=== PATIENT | female | born 1975 | race Caucasian/White ===

== ENCOUNTER 2020-05-08 09:49 | Outpatient (CLI) | payer OTHER, SELFPAY ==
[2020-05-08 10:07] LABS: Basophils Absolute Auto 0.1 K/mm3 (0.0-0.1); Basophils Percent Auto 0.6 % (0.2-1.2); Eosinophils Absolute Auto 0.2 K/mm3 (0-0.3); Eosinophils Percent Auto 2.5 % (0-4.4); Hematocrit 40.6 % (37.0-47.0); Hemoglobin 13.4 g/dL (12.0-15.0); Immature Granulocyte Absolute 0.04 K/mm3 (0.00-0.031); Immature Granulocyte Percent A 0.4 % (0-0.5); Lymphocytes Absolute Auto 2.13 K/mm3 (0.9-3.2); Lymphocytes Percent Auto 21.9 % (18.3-44.2); Mean Corpuscular Hemoglobin 29.6 pg (26-34); Mean Corpuscular Volume 89.6 fl (80-100); Mean Platelet Volume 10.3 fl (7.4-10.4); Monocytes Absolute Auto 0.9 K/mm3 (0.1-0.6); Neutrophils Absolute Auto 6.4 K/mm3 (1.3-6.7); Neutrophils Percent Auto 65.6 % (45.5-73.1); Platelet Count Result 304 k/mm3 (150-375); Red Blood Count 4.53 M/mm3 (4.2-5.4); Red Cell Distribution Width 13.9 % (11.5-14.5); White Blood Count 9.7 K/mm3 (4.5-10.0)
[2020-05-08 10:22] LABS: Alanine Aminotransferase 15 U/L (4-35); Albumin Level 4.3 g/dL (3.5-5.1); Alkaline Phosphatase 68 U/L (38-126); Anion Gap 9 mmol/L (8-16); Aspartate Amino Transferase 22 U/L (14-36); Bilirubin,Total 0.5 mg/dL (0.2-1.3); Blood Urea Nitrogen 10 mg/dL (7-17); Calcium 9.6 mg/dL (8.4-10.2); Carbon Dioxide 24 mmol/L (22-30); Chloride 105 mmol/L (98-107); Cholesterol 195 mg/dL (0-200); Estimated Glomerular Filt Rate > 60; Glucose 117 mg/dL (65-105); HDL Direct 45 mg/dL; Potassium 4.1 mmol/L (3.4-5.0); Sodium 138 mmol/L (137-145); Triglycerides 145 mg/dL (<150)
[2020-05-08 10:33] LABS: LDL Cholesterol Direct 112 mg/dL
[2020-05-08 10:53] LABS: Total Triiodothyronine (T3) 1.39 NG/ML (0.97-1.69)
[2020-05-08 12:53] LABS: Vitamin D 25 Hydroxy 28.5 ng/mL
== END 2020-05-08 09:50 | disposition home or self-care (01) ==
PROVIDERS: PCP Family Medicine; Visit Provider Nurse Practitioner
DX: R03.0 Elevated blood-pressure reading, without diagnosis of hypertension (principal); E55.9 Vitamin D deficiency, unspecified
CPT/HCPCS: 36415; 80053; 80061; 82306; 84439; 84443; 84480; 85025

== ENCOUNTER 2020-12-30 23:19 | Emergency (ER) | payer OTHER, SELFPAY ==
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
[2020-12-30 23:12] VITALS: BP 142/106; PULSE 110; RESP 18; TEMP 36.6; O2SAT 99
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
[2020-12-30] MEDS: IBUPROFEN 600 MG TABLET PO (23:41)
[2020-12-31 00:26] VITALS: BP 119/92; RESP 16; O2SAT 99
[2020-12-31] MEDS: METOCLOPRAMIDE HCL INJ 10 MG/2 ML VIAL IV PUSH (00:46)
[2020-12-31] MEDS: diazePAM INJ (*CRX) 10 MG/2 ML SYRINGE 5 MG IV PUSH (00:46)
[2020-12-31 02:22] VITALS: BP 128/94; PULSE 89; RESP 16; O2SAT 99
== END 2020-12-31 02:18 | disposition home or self-care (01) ==
PROVIDERS: Emergency Provider Emergency Medicine; PCP Family Medicine
DX: S06.9X9A Unspecified intracranial injury with loss of consciousness of unspecified duration, initial encounter (principal); S80.02XA Contusion of left knee, initial encounter; I10 Essential (primary) hypertension; G93.0 Cerebral cysts; V47.5XXA Car driver injured in collision with fixed or stationary object in traffic accident, initial encounter
CPT/HCPCS: 70450; 71046; 73564; 96365; 96375; 99284; A9270; J0131; J2765; J3360

== ENCOUNTER 2021-04-09 19:31 | Emergency (ER) | payer OTHER, SELFPAY ==
--- NOTE | ~2021-04-09 | XR_ITS ---
XR elbow LT min 3V 04/09/2021 20:23 INDICATION: Left elbow pain PROCEDURE: 4 views left elbow COMPARISON: No prior studies for comparison. FINDINGS: Fracture, dislocation or subluxation is not identified. The soft tissues appear within norm al limits. No foreign bodies are identified. IMPRESSION: 1: NO ACUTE BONE OR JOINT ABNORMALITY IDENTIFIED. Reviewed, dictated and finalized at location A.
[2021-04-09 19:32] VITALS: BP 146/96; PULSE 86; RESP 18; TEMP 36.6; O2SAT 100
--- NOTE | 2021-04-09 19:59 | ED.GENADULT ---
HPI - General Adult General Chief complaint: Extremity Injury, Upper Stated complaint: left elbow pain Time Seen by Provider: 04/09/21 19:35 Source: patient Mode of arrival: ambulatory Limitations: no limitations History of Present Illness HPI narrative: Patient presents for evaluation of left elbow pain for the last 2 weeks. 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 She was working 2 weeks ago when she felt a pop in her left elbow. She states she has experienced pain in the affected joint since that time. Pain is constant, worse with movement. She does perform repetitive movements while working. She states that pain is 8 out of 10 in severity, sharp, shooting, radiating to the left shoulder and left wrist. She does get some tingling in all digits of left hand but denies any numbness. No loss of range of motion. Movement makes her symptoms worse. She has tried ibuprofen and tramadol, neither of which has been particularly helpful. She does have a history of arthroscopic surgery in the left shoulder in the past. She is right-hand dominant. No additional complaints or concerns. Related Data Home Medications Medication Instructions Recorded Confirmed amlodipine 10 mg PO DAILY 04/09/21 propranolol 40 mg PO DAILY 04/09/21 Allergies Allergy/AdvReac Type Severity Reaction Status Date / Time promethazine Allergy Unknown UNKNOWN Verified 07/08/19 02:43 zolpidem Allergy Unknown Hallucinati Verified 04/09/21 19:37 ng prochlorperazine AdvReac Severe Unknown Verified 04/09/21 19:37 Review of Systems Review of Systems: Narrative: CONSTITUTIONAL: Denies fever, chills, or sweats. EYES: Denies visual changes, redness, or discharge. ENT: Denies rhinorrhea, congestion, sore throat, or otalgia. CARDIOVASCULAR: Denies chest pain, palpitations, or edema. RESPIRATORY: Denies cough or dyspnea. GASTROINTESTINAL: Denies abdominal pain, nausea, vomiting, or diarrhea. GENITOURINARY: Denies dysuria or hematuria. SKIN: Denies rash or itching. MUSCULOSKELETAL:Reports left elbow pain. Denies back pain or myalgia. NEUROLOGIC: Reports tingling in all digits of the left hand. Denies headache, numbness, dizziness, or weakness. PSYCHIATRIC: Denies anxiety or depression. [facility] Past Medical History Medical History (Updated 04/09/21 @ 20:39 by Mark Alanis, [facility], ) HTN (hypertension) Exam Narrative: Exam Narrative: GENERAL: Well-appearing, well-nourished, and in no acute distress. HEAD: Normocephalic, atraumatic. EYES: PERRLA and EOMI. ENT: Nares clear, no rhinorrhea or epistaxis. Mucous membranes moist. Oropharynx without tonsillar hypertrophy exudate or other lesions. Bilateral TMs pearly [place] nonbulging NECK: Supple. No adenopathy or masses. No carotid bruits or JVD CHEST: Clear to auscultation. No respiratory distress. No wheezes rales or rhonchi HEART: Regular rate and rhythm. No murmur heard. Normal peripheral pulses. ABDOMEN: Soft, nontender, nondistended, normal active bowel sounds. EXTREMITIES: Tenderness over lateral epicondyle of left elbow. There is no crepitus, deformity, swelling. 5 out of 5 gross strength against resistance with flexion of the left elbow. 5 out of 5 hand respiratory therapist strength bilaterally. Decreased active ROM of left shoulder. She is able to tolerate full passive ROM of left shoulder SKIN: Warm, dry, no rash. NEURO: No focal deficits. Alert and oriented x3. PSYCH: Normal mood and affect. Course Course Emergency Course: This is a 46-year-old female who presented with complaints of left elbow pain. Physical exam was consistent with lateral epicondylitis. I offered patient imaging and she elected to have x-ray performed. There is no acute bony abnormality identified on imaging. She was provided with a sling. Unfortunately, her pain has been refractory to ibuprofen and tramadol. We will give small quantity of norco per script. She should follow-up outpatient for further vision treatment and ret
[2021-04-09] MEDS: HYDROcodone/acetaminophen (*CRX) 5-325 MG TABLET 2 TAB PO (20:11)
== END 2021-04-09 20:54 | disposition home or self-care (01) ==
PROVIDERS: Emergency Provider Nurse Practitioner; PCP Family Medicine
DX: M77.12 Lateral epicondylitis, left elbow (principal); I10 Essential (primary) hypertension
CPT/HCPCS: 73080; 99283; A4565; A9270

== ENCOUNTER 2021-12-03 21:48 | Emergency (ER) | payer OTHER, SELFPAY ==
[2021-12-03] VITALS (12 sets, daily range): BP systolic 106–149; BP diastolic 72–106; PULSE 63–79; RESP 14–26; TEMP 36.8; O2SAT 93–100
--- NOTE | ~2021-12-03 | CT_ITS ---
EXAMINATION: CTA brain carotid DATE: 12/03/2021 23:47 INDICATION: Headache. Loss of vision. TECHNIQUE: Computed tomographic angiography (CTA) of the head was performed without and with 100 mL O mnipaque-350 intravenous contrast. CTA of the neck was performed with intravenous contrast. Automated exposure control and iterative reconstruction technique were employed. The dose-length product was 1 655.64 mGy-cm. Maximum intensity projection and volume rendered 3D-reconstructions were created by kim wilcox technologist on a separate workstation. COMPARISON: Head CT 12/31/2020 FINDINGS: HEAD CTA: There is no intracranial hemorrhage, acute infarction, or abnormal intracranial mass lesion . There is a 1.7 x 1.2 cm cyst at the body of right lateral ventricle. The ventricles are otherwise n ormal in size. The paranasal sinuses are clear. The mastoid air cells are normal. The vertebral arter ies are codominant. There is no significant stenosis of basilar artery or the posterior cerebral darleen edson. There is no significant stenosis of the anterior or middle cerebral arteries. Anterior communic ating artery is normal. The posterior communicating arteries are normal. There is no aneurysm. NECK CTA: There are no pathologically enlarged lymph nodes. There is no significant plaque in the pro ximal internal carotid arteries. There is 0% stenosis of the proximal right internal carotid artery r elative to normal distal artery lumen diameter (NASCET criteria). There is 0% stenosis of the proxima l left internal carotid artery relative to normal distal artery lumen diameter. There is moderate cer vical spondylosis. There is extensive dental disease. IMPRESSION: 1. 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 2. No aneurysm or significant intracranial arterial stenosis. 3. 0% stenosis of the proximal internal carotid arteries relative to normal distal artery lumen diame ters (NASCET criteria). 4. Extensive dental disease. Reviewed, dictated and finalized at location A. GER ROUTE IMPRESSION: 1. 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 2. No aneurysm or significant intracranial arterial stenosis. 3. 0% stenosis of the proximal internal carotid arteries relative to normal dis barbara artery lumen diameters (NASCET criteria). 4. Extensive dental disease.
[2021-12-03 22:13] LABS: Basophils Absolute Auto 0.1 K/mm3 (0.0-0.1); Basophils Percent Auto 0.5 % (0.2-1.2); Eosinophils Absolute Auto 0.3 K/mm3 (0-0.3); Eosinophils Percent Auto 3.3 % (0-4.4); Hematocrit 43.5 % (37.0-47.0); Immature Granulocyte Absolute 0.06 K/mm3 (0.00-0.031); Immature Granulocyte Percent A 0.6 % (0-0.5); Lymphocytes Absolute Auto 2.79 K/mm3 (0.9-3.2); Lymphocytes Percent Auto 28.9 % (18.3-44.2); Mean Corpuscular HGB Conc 32.2 g/dl (32-36); Mean Corpuscular Hemoglobin 29.5 pg (26-34); Mean Corpuscular Volume 91.6 fl (80-100); Mean Platelet Volume 10.1 fl (7.4-10.4); Monocytes Absolute Auto 0.9 K/mm3 (0.1-0.6); Monocytes Percent Auto 9.2 % (2.6-8.5); Neutrophils Absolute Auto 5.6 K/mm3 (1.3-6.7); Neutrophils Percent Auto 57.5 % (45.5-73.1); Platelet Count Result 386 k/mm3 (150-375); Red Blood Count 4.75 M/mm3 (4.2-5.4); Red Cell Distribution Width 13.5 % (11.5-14.5); White Blood Count 9.7 K/mm3 (4.5-10.0)
[2021-12-03] MEDS: diphenhydrAMINE HCl INJ 50 MG/ML VIAL 25 MG IV PUSH (22:15)
[2021-12-03] MEDS: KETOROLAC 30 MG/ML VIAL (*BKC) IV PUSH (22:17)
[2021-12-03] MEDS: METOCLOPRAMIDE HCL INJ 10 MG/2 ML VIAL IV PUSH (22:20)
[2021-12-03 22:27] LABS: Anion Gap 8 mmol/L (8-16); Blood Urea Nitrogen 9 mg/dL (7-17); Calcium 9.3 mg/dL (8.4-10.2); Carbon Dioxide 28 mmol/L (22-30); Chloride 103 mmol/L (98-107); Estimated CRCL calculation 96 ml/min; Estimated Glomerular Filt Rate > 60; Glucose 122 mg/dL (65-110); Potassium 4.1 mmol/L (3.4-5.0); Sodium 139 mmol/L (137-145)
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
[2021-12-04] VITALS (17 sets, daily range): BP systolic 110–127; BP diastolic 74–96; PULSE 62–77; RESP 15–24; TEMP 36.2; O2SAT 97–100
--- NOTE | 2021-12-04 00:28 | PC.NURSE ---
Pt C/O irritation to left eye. Pt reports problable eyelash in eye. Eye irrigated with clean water.
--- NOTE | 2021-12-04 02:29 | PC.NURSE ---
Report called to Laura at [facility]
--- NOTE | 2021-12-04 02:45 | PC.NURSE ---
Report by ED CLAIRE Frederick to [facility]. Awaiting EMS arrival for transport: ETA [id number]. Per ED MD Fitch and [facility], transfer is time-sensitive .
--- NOTE | 2021-12-04 03:00 | PC.NURSE ---
Report given to [facility].
== END 2021-12-04 03:00 | disposition short-term general hospital (02) ==
PROVIDERS: Emergency Provider Emergency Medicine; PCP Family Medicine
DX: R51.9 Headache, unspecified (principal); H54.7 Unspecified visual loss; I10 Essential (primary) hypertension
CPT/HCPCS: 36415; 70496; 70498; 80048; 81025; 85025; 96374; 96375; 99285; J1200; J1885; J2765; Q9967

== ENCOUNTER 2022-08-27 11:35 | Emergency (ER) | payer OTHER, SELFPAY ==
--- NOTE | ~2022-08-27 | XR_ITS ---
XR foot LT min 3V DATE: 08/27/2022 12:27 INDICATION: Fall 2 days ago. Patient felt her foot pop. Pain. TECHNIQUE: 4 views COMPARISON: None FINDINGS: Slight plantar calcaneal enthesopathy. Probable os tibiale externum accessory ossicles, normal variant, the proximal medial aspect of the ta rsal navicular bone. No fracture or dislocation, periosteal reaction or bone destruction is evident. IMPRESSION: No apparent fracture or dislocation Slight plantar calcaneal enthesopathy Os tibiale externum, normal variant Reviewed, dictated and finalized at location A. [place] [employer]
[2022-08-27 11:45] VITALS: BP 145/96; PULSE 82; RESP 18; TEMP 37; O2SAT 100
--- NOTE | 2022-08-27 12:37 | ED.LOWEXIN ---
HPI - Extremity Injury (Lower) General Chief Complaint: Extremity Injury, Lower Stated Complaint: L LEG PAIN S/P FALL AFTER PT Time Seen by Provider: 08/27/22 12:21 History of Present Illness HPI Narrative: Patient is a 47-year-old female here for evaluation of left foot pain for the past 4 days. Patient states that she fell 4 days ago while at physical therapy and landed on the foot in inversion, has had mild pain since then, but yesterday when she was ambulating she felt a pop in the dorsum of her foot in the pain has been severe since. Patient has been able to bear weight but is states it is painful. She took a tramadol yesterday with mild relief of her pain. No numbness or tingling in the foot, difficulty moving the foot, knee pain, head injury or further injury sustained in the fall. Related Data Home Medications Medication Instructions Recorded Confirmed amlodipine 10 mg tablet 10 mg PO DAILY 04/09/21 propranolol 40 mg tablet 40 mg PO DAILY 04/09/21 Allergies Allergy/AdvReac Type Severity Reaction Status Date / Time promethazine Allergy Unknown UNKNOWN Verified 08/27/22 12:00 zolpidem Allergy Unknown Hallucinati Verified 08/27/22 12:00 ng prochlorperazine AdvReac Severe Unknown Verified 08/27/22 12:00 [facility] Past Medical History Medical History (Updated 08/27/22 @ 13:28 by Sherin Pepper PA-C) HTN (hypertension) Migraine headache Surgical History Surgical History (Updated 12/03/21 @ 23:04 by Tom Fitch MD) History of appendectomy History of cholecystectomy Social History Social History (Updated 12/03/21 @ 23:05 by Tom Fitch MD) Smoking status: Never smoker Course Vital Signs Vital signs: Vital Signs Temperature 98.6 F 08/27/22 11:45 Pulse Rate 82 08/27/22 11:45 Respiratory Rate 18 08/27/22 11:45 Blood Pressure 145/96 H 08/27/22 11:45 Pulse Oximetry 100 08/27/22 11:45 Oxygen Delivery Room Air 08/27/22 11:45 Temperature 98.6 F 08/27/22 11:45 Pulse Rate 82 08/27/22 11:45 Respiratory Rate 18 08/27/22 11:45 Blood Pressure 145/96 H 08/27/22 11:45 Pulse Oximetry 100 08/27/22 11:45 Oxygen Delivery Room Air 08/27/22 11:45 MDM - Extremity Injury (Lower) MDM Narrative Medical decision making narrative: 47 year old female here for evaluation of foot pain over the past several days. She is tender to palpation on the dorsum of her foot but has no obvious deformity, her compartments are soft and she has strong distal pulses. Foot x-ray shows no acute abnormality. For patient's comfort she was placed in a postop shoe and encouraged to follow-up with her primary care doctor. She is able to bear weight. Return precautions were discussed and she was discharged home. Discharge Plan Discharge Clinical Impression: Ankle sprain and strain Patient Disposition: Home, Self-Care Condition: Stable Instructions: Antibiotic Form, Arthralgia (ED) Additional Instructions: Your x-ray did not reveal any fracture of your foot. It is likely you have a sprain. Please wear the postop shoe for your comfort. For pain, alternate between Tylenol and ibuprofen. You can take 1000mg of Tylenol every 6 hours and 800 mg Motrin/ibuprofen every 8 hours. Return if your pain acutely worsens, you develop fevers or chills, you lose consciousness. Prescriptions: No Action propranolol 40 mg tablet 40 mg PO DAILY amlodipine 10 mg tablet 10 mg PO DAILY hydrocodone-acetaminophen 5-325 mg tablet 1 - 2 tablet PO Q8H PRN (Reason: pain) Qty: 12 0RF Follow-up/Referrals: Alexis,AMBER Rendon [Primary Care Provider] -
[2022-08-27] MEDS: IBUPROFEN 600 MG TABLET PO (13:13)
== END 2022-08-27 13:35 | disposition home or self-care (01) ==
PROVIDERS: Emergency Provider Physician Assistant; PCP Physician Assistant
DX: S93.402A Sprain of unspecified ligament of left ankle, initial encounter (principal); S96.912A Strain of unspecified muscle and tendon at ankle and foot level, left foot, initial encounter; I10 Essential (primary) hypertension; W19.XXXA Unspecified fall, initial encounter; X50.9XXA Other and unspecified overexertion or strenuous movements or postures, initial encounter
CPT/HCPCS: 73630; 99283; A9270

== ENCOUNTER 2024-07-01 09:07 | Emergency (ER) | payer OTHER, SELFPAY ==
[2024-07-01 09:22] VITALS: BP 132/89; PULSE 97; RESP 14; TEMP 36.6; O2SAT 100
--- NOTE | 2024-07-01 09:59 | ED.ALLEREA ---
HPI - Allergic Reaction General Chief complaint: Allergic Reaction Stated complaint: allergic reaction to antibx Time Seen by Provider: 07/01/24 09:51 Source: patient Mode of arrival: ambulatory Limitations: no limitations History of Present Illness HPI narrative: This is a 49-year-old female that presents to the emergency department for a possible allergic reaction. Reports she is currently on Augmentin for strep throat. She started this medication on Sunday. on Sunday she started to develop itching and hives. She took Benadryl with relief. She continued to take the Augmentin as her doctor had not called in a different prescription yet. Once again she started to develop itching and rash. She has been having sore throat, cough, nausea and vomiting. Also reports she has had itching and discharge of her vulva. Deneis fevers. Related Data Home Medications Medication Instructions Recorded Confirmed amlodipine 10 mg tablet 10 mg PO DAILY 04/09/21 propranolol 40 mg tablet 40 mg PO DAILY 04/09/21 Allergies Allergy/AdvReac Type Severity Reaction Status Date / Time promethazine Allergy Unknown UNKNOWN Verified 07/01/24 11:08 zolpidem Allergy Unknown Hallucinati Verified 07/01/24 11:08 ng prochlorperazine AdvReac Severe Unknown Verified 07/01/24 11:08 Review of Systems Review of Systems: CONSTITUTIONAL: Denies fever ENT: Reports congestion, sore throat, and otalgia. RESPIRATORY: Reports cough and dyspnea. GASTROINTESTINAL: Reports nausea, vomiting SKIN: Reports rash and itching. All systems reviewed & are unremarkable except as noted in HPI and below PMFSH Past Medical History Medical History (Updated 07/01/24 @ 10:00 by Sherin Douglas PA-C) HTN (hypertension) Migraine headache Surgical History Surgical History (Updated 12/03/21 @ 23:04 by Tom Fitch MD) History of appendectomy History of cholecystectomy Social History Social History (Updated 12/03/21 @ 23:05 by Tom Fitch MD) Smoking status: Never smoker Living arrangements: with family Exam Narrative: GENERAL: Well-appearing, well-nourished, and in no acute distress. HEAD: Normocephalic, atraumatic. EYES: EOMI. ENT: Nares clear, no rhinorrhea or epistaxis. Mucous membranes moist. Oropharynx without tonsillar hypertrophy exudate or other lesions. Bilateral TMs pearly [place] non-bulging NECK: Supple. No adenopathy or masses. CHEST: Clear to auscultation. No respiratory distress. No wheezes rales or rhonchi HEART: Regular rate and rhythm. No murmur heard. Normal peripheral pulses. EXTREMITIES: Normal range of motion. No edema. SKIN: Warm, dry, no rash. NEURO: No focal deficits. Alert and oriented x3. PSYCH: Normal mood and affect FEMALE GENITAL: Redness and white discharge noted on the vulva Course Course Emergency Course: Patient updated on her workup and agrees with plan of care Vital Signs Vital signs: Vital Signs Temperature 97.9 F 07/01/24 09:22 Pulse Rate 97 07/01/24 09:22 Respiratory Rate 14 07/01/24 09:22 Blood Pressure 132/89 07/01/24 09:22 Pulse Oximetry 100 07/01/24 09:22 Oxygen Delivery Room Air 07/01/24 09:22 Temperature 97.9 F 07/01/24 09:22 Pulse Rate 83 07/01/24 12:21 Respiratory Rate 25 H 07/01/24 12:21 Blood Pressure 128/100 H 07/01/24 12:21 Pulse Oximetry 100 07/01/24 12:21 Oxygen Delivery Room Air 07/01/24 09:22 MDM - Allergic Reaction MDM Narrative Medical decision making narrative: Patient presents the emergency department for possible allergic reaction to Augmentin. Had been on it for 3 days. Started developed hives. Take Benadryl with relief, but then took another dose. Has had continued itching since. Patient's airway is patent. Lungs are clear on exam. No swelling of the mouth or throat. Given dose of Solu-Medrol and antihistamines with improvement. Also endorsing vulvar irritation. Exam is consistent with vulvovaginal quinn
[2024-07-01] MEDS: SODIUM CHLORIDE 0.9% IV 1,000 ML 999 ML IV CONT (10:58)
[2024-07-01] MEDS: FLUCONAZOLE 150 MG TABLET PO (10:59)
[2024-07-01] MEDS: ONDANSETRON INJ 4 MG/2 ML VIAL IV PUSH (10:59)
[2024-07-01] MEDS: diphenhydrAMINE HCl INJ 50 MG/ML VIAL 25 MG IV PUSH ×2 (11:03→14:00)
[2024-07-01] MEDS: methylPREDNISolone SOD SUCC 125 MG VIAL IV PUSH (11:06)
[2024-07-01] MEDS: FAMOTIDINE 20 MG/2 ML VIAL IV PUSH (11:06)
[2024-07-01 11:08] VITALS: BP 146/95; PULSE 77; RESP 18; O2SAT 99
--- NOTE | 2024-07-01 11:08 | PC.NURSE ---
Charting done by Mahnaz Terrazas student counsellor reviewed and RN agrees
[2024-07-01 11:55] LABS: Influenza A QL RT-PCR Negative (Negative); Influenza B QL RT-PCR Negative (Negative); RSV RNA, RT-PCR Negative (Negative); SARS-CoV-2 RNA PCR Negative (Negative)
[2024-07-01 12:21] VITALS: BP 128/100; PULSE 83; RESP 25; O2SAT 100
[2024-07-01 13:55] VITALS: BP 126/76; PULSE 89; RESP 22; O2SAT 97
== END 2024-07-01 14:11 | disposition home or self-care (01) ==
PROVIDERS: Emergency Provider Physician Assistant; PCP Nurse Practitioner Family
DX: B37.31 Acute candidiasis of vulva and vagina (principal); T78.40XA Allergy, unspecified, initial encounter; X58.XXXA Exposure to other specified factors, initial encounter; I10 Essential (primary) hypertension; Z20.822 Contact with and (suspected) exposure to COVID-19
CPT/HCPCS: 87637; 96361; 96374; 96375; 96376; 99284; A9270; J1200; J2405; J2919; J7030

== ENCOUNTER 2025-03-30 19:40 | Emergency (ER) | payer OTHER, SELFPAY ==
--- NOTE | ~2025-03-30 | CT_ITS ---
Noncontrast CT scan of the cervical spine Technique: Multiple contiguous axial [address] images of the cervical spine were obtained and rec onstructed in 2D sagittal and coronal planes on the acquisition scanner. Dose reduction technique was used on this scan by utilizing automated exposure control, adjustment of the mA and/or kV according to patient size. The dose-length product (DLP) was 447.77 mGy-cm. Clinical History: Pain Findings: No fractures or dislocations. There is moderate degenerative disc narrowing at C5-C6. Ther e is mild degenerative change in the remainder of the cervical spine. There is mild bilateral neural foraminal narrowing at C5-C6. No prevertebral soft tissue swelling. Impression: No fracture or subluxation of the cervical spine. Degenerative changes, as above, worst at C5-C6. Reviewed, dictated and finalized at [facility]. Impression: No fracture or subluxation of the cervical spine. Degenerative changes, as above, worst at C5-C6.
--- NOTE | ~2025-03-30 | CT_ITS ---
Non-contrast Head CT History: Headache COMPARISON: 12/03/2021 Technique: Axial non-contrast imaging of the brain was performed. Dose reduction technique was used on this scan by utilizing automated exposure control and iterative reconstruction technique. The dose -length product (DLP) was 605.33 mGy-cm. Findings: There is no evidence of intracranial hemorrhage, mass lesion, or acute infarct. Brain par enchyma appears normal. The ventricles and subarachnoid spaces are normal in size. The calvarium ap pears normal. The visualized paranasal sinuses and mastoid air cells are clear. Impression: No significant abnormality seen. Reviewed, dictated and finalized at location . Impression: No significant abnormality seen.
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
--- OUTSIDE RECORDS SUMMARY | 2025-03-30 19:42 | XMS_ITS | Encounter Summary ---
Author Organization [facility] Address 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
--- OUTSIDE RECORDS SUMMARY | 2025-03-30 19:42 | XMS_ITS | Clinical Summary ---
Author Organization [facility] Address [address] [place] [address] [place] [place], [place] [address] Phone Care Team Providers Care Online Merchandiser Name Role Phone Unavailable Primary Care Provider Unavaildom e Allergies Active Allergy Reactions Criticality Noted Date Comments Zolpidem Anxiety Low 09/01/2010 Medications IBUPROFEN (ADVIL ORAL) Take by mouth. Ac tive azithromycin (ZITHROMAX Z-BHARATHI) 250 mg Oral tabletIndicatio ns:Acute bronchitis Take 2 tabs the first day and 1 tab days 2-5 1 Package 0 2 Active benzonatate (TESSALON) 200 mg Oral capsuleIndicati ons:Acute bronchitis Take 1 Cap by mouth 3 times daily. 30 Cap 0 2 Active rOPINIRole (REQUIP) 2 mg Tablet 1 TAB 1-3 HOURS BEFORE BED 2 Active erenumab-aooe (AIMOVIG) 70 mg/mL Auto-Injector Inject 70 mg by subcutaneous injection every 30 days. 3 Active Active Problems No known active problems Encounters Date Type Department Care Team Description 03/17/2025 External Device Data [facility] ABSTRACTION Provider, Abstract 03/03/2025 External Device Data [facility] ABSTRACTION Provider, Abstract 02/19/2025 External Device Data [facility] ABSTRACTION Provider, Abstract 02/18/2025 External Device Data [facility] ABSTRACTION Provider, Abstract 02/17/2025 External Device Data [facility] ABSTRACTION Provider, Abstract 01/13/2025 External Device Data [facility] ABSTRACTION Provider, Abstract from Last 3 Months Family History * Patient is adopted Medical History Relation Name Comments Colon Cancer Neg Hx Social History Tobacco Use Types Packs/Day Years Used Date Smoking Tobacco: Never Smokeless Tobacco: Never Alcohol Use Standard Drinks/Week Comments No 0 (1 standard drink = 0.6 oz pur e alcohol) Feeling Safe Answer Date Recorded Are you in a relationship wi th someone who hurts you emotionally and/or physically? 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 Gender Identity Female 07/15/2024 12:25 PM CDT Sexual Orientation Straight 07/15/2024 12 :25 PM CDT Occupation Industry Job Start Date Job End Date Not on file Not on file Not on file Not on file Last Filed Vital Signs Vital Sign Reading Time Taken Comments Blood Pressure 111/82 07/31/2024 10:24 AM CDT Pulse 73 07/31/2024 10:24 AM CDT Temperature 36.1 C (97 F) 07/31/2024 10:12 AM CDT Respiratory Rate 18 07/31/2024 10:24 AM CDT Oxygen Saturation 100% 07/31/2024 10:24 AM CDT Inhaled Oxygen Concentration - - Weight 93.1 kg (205 lb 3.2 oz) 07/31/2024 8:58 A M CDT Height 157.5 cm (5' 2) 07/15/2024 1:00 PM CDT Body Mass Index 37.53 07/15/2024 1:00 PM CDT Plan of Treatment Health Maintenance Due Date Last Done Comments Pre-Diabetes and Diabetes Screening 1975 HEPATITIS B VACCINES (1 of 3 - 19+ 3-dose series) 1996 05/26/2004 HPV/Cotest (21-29) 1998 CERVICAL CANCER SCREENING 2007 HPV/Cotest (30-65) 2007 PAP SMEAR 2007 BREAST CANCER SCREENING 2017 FIT-DNA Q 3 years 2022 FIT/FOBT Q 1 year 2022 Flex Sig/CT Colonography Q 5 years 2022 INFLUENZA VACCINE (#1) 2024 DTAP/TDAP/TD VACCINES (2 - Td or Tdap) 05/15/2034 COLORECTAL SCREENING 07/31/2034 07/31/2024, 07/31/20 24 Colorectal Cancer Screening 07/31/2034 Procedures Procedure Name Priority Date/Time Associated Diagnosis Comments COLONOSCOPY REPORT 07/31/2024 10 :12 AM CDT from Last 3 Months or Most Recently Relevant to Health Maintenance Results * COLONOSCOPY REPORT (07/31/2024 10:12 AM CDT) Narrative Procedure Note Yisel Muñoz MD - 07/31/2024 10:12 AM CDT [facility] Patient Name: Saira Arteaga Procedure Date: 07/31/2024 Date of : 1975 Age: 49 Attending MD: Yisel Muñoz MD, Procedure: Colonoscopy Indications: Screening for colorectal malignant neoplasm Providers: Yisel Muñoz MD Referring MD: Elena Rodriguez Medicines: Monitored Anesthesia Care Procedure: Informed consent was obtained for the procedure, including moderate sedation after risks were discussed. Based on the pre-procedure assessment, including review of the patient's medical history, medications, allergies, and review of systems, the patient was deemed to be an appropriate candidate for sedation. A timeout was performed. Continuous ECG monitoring, pulse oximetry, blood pressure monitoring, and direct observation were performed. The Colonoscope was introduced through the anus and advanced to the terminal ileum. The colonoscopy was performed without difficulty. The patient tolerated the procedure well. The quality of the bowel preparation was good. The terminal ileum, ileocecal valve, appendiceal orifice, and rectum were photographed. Estimated Blood Loss: Estimated blood loss was minimal. Findings: Hemorrhoids were found on perianal exam. The terminal ileum appeared normal. A 3 mm polyp was found in the ascending colon. The polyp was sessile. The polyp was removed with a jumbo cold forceps. Resection and retrieval were complete. Verification of patient identification for the specimen was done. Four sessile polyps were found in the recto-sigmoid colon. The polyps were 3 to 4 mm in size. These polyps were removed with a jumbo cold forceps. Resection and retrieval were complete. The exam was otherwise without abnormality on direct and retroflexion views. Complications: No immediate complications. Impression: - Hemorrhoids found on perianal exam. - The examined portion of the ileum was normal. - One 3 mm polyp in the ascending colon, removed with a jumbo cold forceps. Resected and retrieved. - Four 3 to 4 mm polyps at the recto-sigmoid colon, removed with a jumbo cold forceps. Resected and retrieved. - The examination was otherwise normal on direct and retroflexion views. Recommendation: - Patient has a contact number available for emergencies. The signs and symptoms of potential delayed complications were discussed with the patient. Return to normal activities tomorrow. Written discharge instructions were provided to the patient. - Resume previous diet. - Continue present medications. - Await pathology results. - Repeat colonoscopy in 3 years (if adenomatous) or 10 years (if hyperplastic) for surveillance based on pathology results. Yisel Muñoz MD 07/31/2024 10:12:33 AM This report has been signed electronically. Number of Addenda: 0 Procedure Date: 07/31/2024 9:43:[address] [place] [address] Yisel Muñoz MD GI PROCEDURE ORDERABLES F inal Result from Last 3 Months or Most Recently Relevant to Health Maintenance Insurance INDIVIDUAL EXCHANGE [id number] Advance Directives For more information, please contact: [phone] * Full Code (Latest Code Status on File) Date Activated Date Inactivated Comments 07/31/2024 9:02 AM 07/31/2024 12:43 PM
--- OUTSIDE RECORDS SUMMARY | 2025-03-30 19:42 | XMS_ITS | Encounter Summary ---
Author Organization [facility] Address 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
--- OUTSIDE RECORDS SUMMARY | 2025-03-30 19:42 | XMS_ITS | Encounter Summary ---
Author Organization [facility] Address [address] [place] [address] Care Team Providers Care Pss Delivery Professional Name Role Phone Unavailable Primary Care Provider Mckenna e Encounter Details Date Type Department Care Team (Late st Contact Info) Description 03/04/2004 Outpatient Historical [facility] [address] [place] [address] Luz Nunez MD [address] [place] [address] Social History Tobacco Use Types Packs/Day Years Used Date Smoking Tobacco: Never Assessed Comments Unknown Sex and Gender Information Value Date Recorded Sex Assigned at Female 07/15/2024 12:25 PM CDT 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
--- OUTSIDE RECORDS SUMMARY | 2025-03-30 19:42 | XMS_ITS | Data Portability ---
Author Organization [facility] [employer], Main Office Address [address] [place] [address] Assessment Encounter Date Assessment Date Assessment LastModified by Organization Details LastModified Time 07/17/2023 07/17/2023 This note is dictated and transcribed by [employer]. [employer] variances may occur. Despite proofreading, typographical errors may occur. [email or web address] Not available 07/17/2023 09:30:13 Plan of Treatment Reminders Order Date Submit Date Provider Last Modified By Organization Details Last Modified Time Details Appointments None recorded. Lab rapid strep group A, throat 2023 [facility] [address], [place], [address], 4 16:04:36 pap, IG + HR HPV 2023 024 [facility] (Lab), [address] [place], [address], 4 10:39:50 lipid panel, serum 2023 024 [facility] (Lab), [address] [place], [address], 4 14:11:46 CBC w/ auto diff 2023 024 [facility] (Lab), [address] [place], [address], 4 14:11:45 TSH, serum or plasma 2023 024 [facility] (Lab), [address] [place], [address], 4 08:52:25 vitamin D, 1,25-dihydr oxy, serum 2023 024 [facility] (Lab), [address] [place], [address], 4 08:52:26 CMP, serum or plasma 2023 024 [facility] (Lab), [address] [place], [address], 4 14:11:45 glycohemogl obin, total, blood 2023 024 [facility] (Lab), [address] [place], [address], 4 08:52:26 noninvasive colorectal cancer DNA + occult blood screening, QL, stool 2023 024 [email or web address] 477 [facility] (Cologuard Orders Only), [address], [address], [place], [address], 4 08:28:48 Referral None recorded. Procedures None recorded. Surgeries None recorded. Imaging MAMMO, screening, digital, bilateral - *Please call pt to schedule* 2023 [email or web address] [place] [address] - [facility], [address], [address], [place], [address], 4 09:06:39 Medication Orders nystatin 100,000 unit/gram topical powder 2023 024 [facility]61, [address] [facility], [place], [address], 4 10:32:21 nystatin 100,000 unit/gram topical cream 2023 [facility], [address] [place] [address], [address], 4 10:32:21 ropinirole 3 mg tablet 2023 [facility], [address] [place] [address], [address], 4 10:32:19 [employer] Autoinjecto r 70 mg/mL subcutaneou s auto-inject or 2023 [facility], [address] [place] [address], [address], 4 10:53:23 meloxicam 15 mg tablet 2023 024 [facility], [address] [place] [address], [address], 4 10:32:20 Patient TargetsNo targets recorded. Patient InstructionsNo instructions recorded. Reason for Referral None Reported. Results Created Date Observation Date Name Description Value Unit Range Abnormal Flag Note LastModifiedBy Organization Detail LastModifiedTime 05/23/2005/24/2024 CBC WITH DIFFE RENTI AL/PL ATELE T WBC 7.9 x10e3 /uL 3.4-10 .8 normal Not Available [facility] ([facility]) [address] [place], [address], 05/26/2024 14:11:45 05/23/20 24 05/24/2024 CBC WITH DIFFE RENTI AL/PL ATELE T RBC 4.62 x10e6 /uL 3.77-5 .28 normal Not Available [facility] ([facility]) [address] [place], [address], 05/26/2024 14:11:45 05/23/20 24 05/24/2024 CBC WITH DIFFE RENTI AL/PL ATELE T hemoglobin 13.9 g/dL 11.1-1 5.9 normal Not Available [facility] ([facility]) [address] [facility], [place], [address], 05/26/2024 14:11:45 05/23/2005/24/2024 CBC WITH DIFFE RENTI AL/PL ATELE T hematocrit 42.3 % 34.0-4 6.6 normal Not Available [facility] ([facility]) [address] [facility], [place], [address], 05/26/2024 14:11:45 05/23/2005/24/2024 CBC WITH DIFFE RENTI AL/PL ATELE T MCV 92 fL 79-97 normal Not Available [facility] ([facility]) [address] [facility], [place], [address], 05/26/2024 14:11:45 05/23/2005/24/2024 CBC WITH DIFFE RENTI AL/PL ATELE T MCH 30.1 pg 26.6-3 3.0 normal Not Available [facility] ([facility]) [address] [place], [address], 05/26/2024 14:11:45 05/23/2005/24/2024 CBC WITH DIFFE RENTI AL/PL ATELE T MCHC 32.9 g/dL 31.5-3 5.7 normal Not Available [facility] ([facility]) [address] [place], [address], 05/26/2024 14:11:45 05/23/2005/24/2024 CBC WITH DIFFE RENTI AL/PL ATELE T RDW 12.8 % 11.7-1 5.4 Not Available [facility] ([facility]) [address] [place], [address], 05/26/2024 14:11:45 05/23/2005/24/2024 CBC WITH DIFFE RENTI AL/PL ATELE T platelets 303 x10e3 /uL 150-45 0 normal Not Available [facility] ([facility]) [address] [facility], [place], [address], 05/26/2024 14:11:45 05/23/20 24 05/24/2024 CBC WITH DIFFE RENTI AL/PL ATELE T neutrophils 66 % not estab. normal Not Available [facility] ([facility]) [address] [facility], [place], [address], 05/26/2024 14:11:45 05/23/2005/24/2024 CBC WITH DIFFE RENTI AL/PL ATELE T lymphs 20 % not estab. normal Not Available [facility] ([facility]) [address] [facility], [place], [address], 05/26/2024 14:11:45 05/23/20 24 05/24/2024 CBC WITH DIFFE RENTI AL/PL ATELE T monocytes 10 % not estab. normal Not Available [facility] ([facility]) [address] [facility], [place], [address], 05/26/2024 14:11:45 05/23/20 24 05/24/2024 CBC WITH DIFFE RENTI AL/PL ATELE T eos 4 % not estab. normal Not Available [facility] ([facility]) [address] [facility], [place], [address], 05/26/2024 14:11:45 05/23/20 24 05/24/2024 CBC WITH DIFFE RENTI AL/PL ATELE T basos 0 % not estab. normal Not Available [facility] ([facility]) [address] [facility], [place], [address], 05/26/2024 14:11:45 05/23/20 24 05/24/2024 CBC WITH DIFFE RENTI AL/PL ATELE T immature cells RN TRANSITIONAL CARE Not Available [facility] ([facility]) [address] [facility], [place], [address], 05/26/2024 14:11:45 05/23/2005/24/2024 CBC WITH DIFFE RENTI AL/PL ATELE T neutrophils (absolute) 5.2 x10e3 /uL 1.4-7. 0 normal Not Available [facility] ([facility]) [address] [place], [address], 05/26/2024 14:11:45 05/23/20 24 05/24/2024 CBC WITH DIFFE RENTI AL/PL ATELE T lymphs (absolute) 1.6 x10e3 /uL 0.7-3. 1 normal Not Available [facility] ([facility]) [address] [facility], [place], [address], 05/26/2024 14:11:45 05/23/20 24 05/24/2024 CBC WITH DIFFE RENTI AL/PL ATELE T monocytes(ab solute) 0.8 x10e3 /uL 0.1-0. 9 normal Not Available [facility] ([facility]) [address] [place], [address], 05/26/2024 14:11:45 05/23/20 24 05/24/2024 CBC WITH DIFFE RENTI AL/PL ATELE T eos (absolute) 0.3 x10e3 /uL 0.0-0. 4 normal Not Available [facility] ([facility]) [address] [place], [address], 05/26/2024 14:11:45 05/23/20 24 05/24/2024 CBC WITH DIFFE RENTI AL/PL ATELE T baso (absolute) 0.0 x10e3 /uL 0.0-0. 2 normal Not Available [facility] ([facility]) [address] [place], [address], 05/26/2024 14:11:45 05/23/20 24 05/24/2024 CBC WITH DIFFE RENTI AL/PL ATELE T immature granulocytes 0 % not estab. Not Available [facility] ([facility]) [address] [facility], [place], [address], 05/26/2024 14:11:45 05/23/20 24 05/24/2024 CBC WITH DIFFE RENTI AL/PL ATELE T immature grans (abs) 0.0 x10e3 /uL 0.0-0. 1 Not Available [facility] ([facility]) [address] [facility], [place], [address], 05/26/2024 14:11:45 05/23/2005/24/2024 CBC WITH DIFFE RENTI AL/PL ATELE T NRBC RN TRANSITIONAL CARE Not Available [facility] ([facility]) [address] [facility], [place], [address], 05/26/2024 14:11:45 05/23/20 24 05/24/2024 CBC WITH DIFFE RENTI AL/PL ATELE T hematology comments: RN TRANSITIONAL CARE Not Available [facility] ([facility]) [address] [facility], [place], [address], 05/26/2024 14:11:45 05/23/20 24 05/24/2024 COMP. METAB OLIC PANEL (14) glucose 103 mg/dL 70-99 above high normal Not Available [facility] ([facility]) [address] [facility], [place], [address], 05/26/2024 14:11:45 05/23/20 24 05/24/2024 COMP. METAB OLIC PANEL (14) BUN 8 mg/dL 6-24 normal Not Available [facility] ([facility]) [address] [facility], [place], [address], 05/26/2024 14:11:45 05/23/20 24 05/24/2024 COMP. METAB OLIC PANEL (14) creatinine 0.81 mg/dL 0.57-1 .00 normal Not Available [facility] ([facility]) [address], [place], [address], 05/26/2024 14:11:45 05/23/20 24 05/24/2024 COMP. METAB OLIC PANEL (14) eGFR 90 mL/mi n/1.7 3 >59 normal Not Available [facility] ([facility]) [address], [place], [address], 05/26/2024 14:11:45 05/23/20 24 05/24/2024 COMP. METAB OLIC PANEL (14) BUN/creatini ne ratio 10 9-23 normal Not Available [facility] ([facility]) [address], [place], [address], 05/26/2024 14:11:45 05/23/20 24 05/24/2024 COMP. METAB OLIC PANEL (14) sodium 138 mmol/ L 134-14 4 normal Not Available [facility] ([facility]) [address], [place], [address], 05/26/2024 14:11:45 05/23/20 24 05/24/2024 COMP. METAB OLIC PANEL (14) potassium 4.4 mmol/ L 3.5-5. 2 normal Not Available [facility] ([facility]) [address] [place], [address], 05/26/2024 14:11:45 05/23/20 24 05/24/2024 COMP. METAB OLIC PANEL (14) chloride 105 mmol/ L 96-106 normal Not Available [facility] ([place] [facility]) [address] [facility] [place], [address], 05/26/2024 14:11:45 05/23/20 24 05/24/2024 COMP. METAB OLIC PANEL (14) carbon dioxide, total 20 mmol/ L 20-29 normal Not Available [facility] ([place] [facility]) [address] [facility] [place], [address], 05/26/2024 14:11:45 05/23/20 24 05/24/2024 COMP. METAB OLIC PANEL (14) calcium 9.6 mg/dL 8.7-10 .2 normal Not Available [facility] ([facility]) [address] [place], [address], 05/26/2024 14:11:45 05/23/20 24 05/24/2024 COMP. METAB OLIC PANEL (14) protein, total 7.3 g/dL 6.0-8. 5 normal Not Available [facility] ([facility]) [address] [place], [address], 05/26/2024 14:11:45 05/23/20 24 05/24/2024 COMP. METAB OLIC PANEL (14) albumin 4.3 g/dL 3.9-4. 9 normal Not Available [facility] ([facility]) [address] [place], [address], 05/26/2024 14:11:45 05/23/2005/24/2024 COMP. METAB OLIC PANEL (14) globulin, total 3.0 g/dL 1.5-4. 5 Not Available [facility] ([facility]) [address] [place], [address], 05/26/2024 14:11:45 05/23/20 24 05/24/2024 COMP. METAB OLIC PANEL (14) bilirubin, total 0.5 mg/dL 0.0-1. 2 normal Not Available [facility] ([facility]) [address] [place], [address], 05/26/2024 14:11:45 05/23/20 24 05/24/2024 COMP. METAB OLIC PANEL (14) alkaline phosphatase 67 IU/L 44-121 normal Not Available [facility] ([facility]) [address] [place], [address], 05/26/2024 14:11:45 05/23/20 24 05/24/2024 COMP. METAB OLIC PANEL (14) AST (SGOT) 16 IU/L 0-40 normal Not Available [facility] ([facility]) [address] [facility] [place], [address], 05/26/2024 14:11:45 05/23/20 24 05/24/2024 COMP. METAB OLIC PANEL (14) ALT (SGPT) 13 IU/L 0-32 normal Not Available [facility] ([facility]) [address] [facility] [place], [address], 05/26/2024 14:11:45 05/23/20 24 05/24/2024 LIPID PANEL cholesterol, total 188 mg/dL 100-19 9 normal Not Available [facility] ([facility]) [address] [place], [address], 05/26/2024 14:11:46 05/23/20 24 05/24/2024 LIPID PANEL triglyceride s 97 mg/dL 0-149 normal Not Available [facility] ([facility]) [address] [place], [address], 05/26/2024 14:11:46 05/23/20 24 05/24/2024 LIPID PANEL HDL cholesterol 52 mg/dL >39 normal Not Available [facility] ([facility]) [address] [place], [address], 05/26/2024 14:11:46 05/23/20 24 05/24/2024 LIPID PANEL VLDL cholesterol marcello 18 mg/dL 5-40 Not Available [facility] ([facility]) [address] [place], [address], 05/26/2024 14:11:46 05/23/20 24 05/24/2024 LIPID PANEL LDL chol calc ([facility]) 118 mg/dL 0-99 above high normal Not Available [facility] ([facility]) [address] [place], [address], 05/26/2024 14:11:46 05/23/20 24 05/24/2024 LIPID PANEL LDL calc comment: RN TRANSITIONAL CARE Not Available [facility] ([facility]) [address] [facility], [place], [address], 05/26/2024 14:11:46 05/23/20 24 05/24/2024 VITAM IN D, 25-HY DROXY vitamin D, 25-hydroxy 23.6 NG/mL 30.0-1 00.0 below low normal Vitam in D defic iency has been defin ed by the [facility]i [facility] ine and an Endoc rine Socie ty pract ice guide line as a level of serum 25-OH vitam in D less than 20 ng/mL (1,2) . The Endoc rine Socie ty went on to furth er defin e vitam in D insuf ficie ncy as a level betwe en 21 and 29 ng/mL (2). 1. IOM (Inst itute of Medic ine). 2009. Dieta ry refer ence intak es for calci um and D. Vivi anne [place]: The [facility] . 2. Naomi deleon MF, Mariah lundberg [place], Gama off-F susana i CHAPIN, et al. Evalu ation , treat ment, and preve ntion of vitam in D defic iency : an Endoc rine Socie ty clini marcello pract ice guide line. JCEM. 2010; 96(7) :1911 -30. Not Available [facility] ([facility]) [address] [facility], [place], [address], 05/26/2024 14:11:47 05/23/20 24 05/24/2024 HEMOG LOBIN A1C hemoglobin A1C 5.5 % 4.8-5. 6 normal Predi abete s: 5.7 - 6.4 Diabe dominique: >6.4 Glyce timothy contr ol for adult s with diabe dominique: <7.0 Not Available [facility] ([facility]) [address] [facility], [place], [address], 05/26/2024 14:11:47 05/23/2005/27/2024 TSH RFX ON ABNOR MAL TO FREE T4 TSH 0.533 uIU/m L 0.450- 4.500 normal Not Available [facility] ([facility]) [address] [facility], [place], [address], 05/27/2024 03:07:56 05/23/20 24 05/26/2024 WRITT EN AUTHO RIZAT ION written authorizatio n Commen t Adonisitt en Autho rizat ion Recei joel. Autho rizat ion recei joel from PER ORIGI NAL ORDER 05-26 Logge d by Inocencia dempsey Not Available [facility] ([facility]) [address] [facility], [place], [address], 05/27/2024 03:07:56 06/11/2006/11/2024 COLOG UARD cologuard result reportable POSITI VE negati ve abnormal POSIT MARCO A TEST RESUL T. A posit marco a Colog uard resul t shoul d be follo wed with a colon oscop y or visua l exami natio n of the colon . The clover l value (refe rence range ) for this assay is negat marco a. TEST DESCR IPTIO N: Coburn site algor ithmi c [place] sis of stool DNA-b rito gordon with hemog lobin immun oassa y. Quant itati ve value s of indiv idual bioma rkers are not repor table and are not assoc iated with indiv idual bioma rker resul t refer ence range s. Colog uard is inten ded for color ectal cance r scree jeremy of adult s of eithe r sex, 45 years or older , who are at [facility] for color ectal cance r (CRC) . Colog uard has been appro joel for use by the U.S. FDA. The perfo rmanc e of Colog uard was estab lishe d in a cross secti onal study of [facility] sk adult s aged 50-84 . Colog uard perfo rmanc e in patie nts ages 45 to 49 years was estim ated by hany-melissa beckman [place] sis of near- age group s. Colon oscop ies perfo rmed for a posit marco a resul t may find as the most clini teresita signi fican t lesio n: color ectal cance r [4.0% ], advan leatha adeno ma (incl uding sessi le joslyn jing polyp s great er than or equal to 1cm diame ter) [20%] or non- advan leatha adeno ma [31%] ; or no color ectal neopl sujata [45%] . These estim ates are deriv ed from a prosp ectiv e cross -sect ional scree jeremy study of 0 indiv idual s at [facility] risk for color ectal cance r who were scree kaya with both Colog uard and colon oscop y. (Talon Lopez et al, N Engl J Med 2014; 370(1 4):12 86-12 97.) Colog uard may produ ce a false negat marco a or false posit marco a resul t (no color ectal cance r or preca ncero us polyp prese nt at colon oscop y follo w up). A negat marco a Colog uard test resul t does not guara ntee the absen ce of CRC or advan leatha adeno ma (pre- cance r). The curre nt Colog uard scree jeremy inter connie is every 3 years . (Amer ican Cance r Socie ty and U.S. Multi -Soci ety Task Force ). Colog uard perfo rmanc e data in a 0 patie nt pivot al study using colon oscop y as the refer ence metho d can be acces sed at the follo wing locat ion: www.e xactl abs.c om/re meryl . Addit ional descr iptio n of the Colog uard test proce ss, warni ngs and preca ution s can be found at www.c josé miguel vonnie.c om. Not Available [facility] (Cologuard Orders Only) [address], [place], [address], 06/14/2024 05:35:14 06/26/20 24 06/30/2024 IGP, APTIM A HPV HPV aptima Negati ve negati ve This nucle ic acid ampli ficat ion test detec ts fourt een high- risk HPV types (16,1 8,31, 33,35 ,39,4 5,51, 52,56 ,58,5 9,66, 68) witho ut diffe renti ation . Not Available [facility] ([facility]) [address] [facility], [place], [address], 07/03/2024 08:29:43 06/26/20 24 07/02/2024 IGP, APTIM A HPV diagnosis: Mima leong NEGAT MARCO A FOR INTRA EPITH ELIAL KACY Aleman OR LINDA BATES . Not Available [facility] ([facility]) [address] [facility], [place], [address], 07/03/2024 08:29:43 06/26/20 24 07/02/2024 IGP, APTIM A HPV specimen adequacy: Mima leong Satis facto rodolfo for evalu ation . Endoc ervic al and/o r squam ous metap lasti c cells (endo cervi marcello compo nent) are prese nt. Not Available [facility] ([facility]) [address] [facility], [place], [address], 07/03/2024 08:29:43 06/26/20 24 07/02/2024 IGP, APTIM A HPV clinician provided ICD10: Mima leong Z01.4 19 Not Available [facility] ([facility]) [address] [facility], [place], [address], 07/03/2024 08:29:43 06/26/20 24 07/02/2024 IGP, APTIM A HPV performed by: Abelardo Phipps (ASCP ) Not Available [facility] ([facility]) [address] [facility], [place], [address], 07/03/2024 08:29:43 06/26/20 24 07/02/2024 IGP, APTIM A HPV . . Not Available [facility] ([facility]) [address] [facility], [place], [address], 07/03/2024 08:29:43 06/26/20 24 07/02/2024 IGP, APTIM A HPV note: Commen t The Pap smear is a scree jeremy test desig kaya to aid in the detec tion of milan ligna nt and malig nant condi tions of the uteri ne cervi x. It is not a diagn ostic proce dure and shoul d not be used as the sole means of detec ting cervi marcello cance r. Both false -posi tive and false -nega tive repor ts do occur . Not Available [facility] ([facility]) [address] [facility], [place], [address], 07/03/2024 08:29:43 06/26/20 24 07/02/2024 IGP, APTIM A HPV test methodology: Commen t This liqui d based ThinP rep(R ) pap test was scree kaya with the use of an image guide d syste m. Not Available [facility] ([facility]) [address] [facility], [place], [address], 07/03/2024 08:29:43 06/26/20 24 06/26/2024 rapid strep group A, throa t STREP A positi ve Not Available [facility] [address], [place], [address], 06/26/2024 15:29:26 Result Notes None recorded. Problems Name Problem SNOMED Code Status Onset Date Resolution Date Notes Provider Name and Address Organization Details Recorded Time Chondromal acia of bilateral patellas 4328923915705 9100 Active 2021 Not Available [employer] 3 19:13:49 Migraine 05887909 Active 2021 Not Available [employer] 3 19:13:49 Osteoarthr itis 039714886 Active 2022 Not Available [employer] 3 19:13:49 Pain of bilateral knee joints 1732941783892 04 Active 2021 Not Available [facility] 3 19:13:49 Essential hypertensi on 04284711 Active 2021 Not Available [facility] 3 19:13:49 Bilateral osteoarthr itis of knees 2046250283076 07 Active 2022 Kristy matthews, [employer] [facility] 3 09:14:51 Pain in right foot 4588087316740 07 Active 2022 Cory Hampton DPM [address], [address], [place], [address] , [employer] [facility] [employer] [facility] 3 16:52:54 Strain of peroneal tendon 059670055 Active 2022 Cory Hampton DPM [address], [address], [place], [address] , [email or web address] [facility] 3 16:53:12 Sprain of right foot 2770418633012 9106 Active 2022 Cory Hampton DPM [address], [address], [place], [address] , [employer] [facility] [employer] [facility] 3 16:53:17 Sprain of lateral ligament of ankle joint 103678880 Active 2022 Cory Hampton DPM [address], [address], [place], [address] , [employer] [facility] 3 09:25:26 Peroneal tendinitis of right lower limb 1264203810090 09 Active 2022 Cory Hampton DPM [address], [address], [place], [address] , [employer] 3 09:25:44 Pes anserinus bursitis 98350002 Active 2023 AMBER Lawton [address], [address], [address] , [employer] [facility] [employer] 4 13:53:05 Eruption 631069806 Active 2023 AMBER Lawton [address], [place] [address], [place], [address] , [employer] 4 13:53:21 Candidiasi s of skin 02108680 Active 2023 [employer] [address], [place] [address], [place], [address] , [employer] [employer] 4 10:31:06 Vitamin D deficiency 89425096 Active 2023 [employer] [address] [employer], [address], [address] , [employer] 4 14:16:25 Acute upper respirator y infection 49077312 Active 2023 [employer] [address], [address], [address] , [employer] 4 01:39:38 Pain in throat 202907395 Active 2023 [employer] [address], [place] [address], [place], [address] , [employer] [employer] 4 15:29:11 Streptococ marcello sore throat 92580073 Active 2023 KAL[employer] Perry [address], [address], [address] , [employer] [facility] [employer] 4 14:55:02 Notes:Some problems listed i n Document: #[id number] could not be added to this patient's chart. Please review this document and add these problems to the patient's chart manually as needed. Problem Notes None recorded. Procedures Surgical History Date Name Laterality Status Provider Name and Address Organization Details Recorded Time 07/31/20 24 Colonoscopy completed Carmenza Hameed RN [facility] 07/31/2024 12:57:21 10/01/19 12 Shoulder completed Not Available [facility] 19:13:10 Cholecystectomy completed Radha Baca [facility] 02/15/2023 16:41:00 Appendectomy completed Radha Baca [facility] 02/15/2023 16:41:06 Imaging Results None recorded. Procedure Notes None recorded. Medical Equipment None Reported. Allergies No known drug allergies Medications Name Sig Start Date Stop Date Status Note LastModified by Organization Details LastModified Time cyclobenzap rine 10 mg tablet TAKE 1 TABLET BY MOUTH THREE TIMES DAILY NEEDED active Not Available Not Available No t Available prednisone 10 mg tablet TAKE 1 TABLET BY MOUTH THREE TIMES DAILY FOR 3 DAYS, 1 TAB TWICE DAILY X 2 DAYS, 1 TAB ONCE X 1 DAY 05/15 completed Not Available Not Available Not Available azithromyci n 250 mg tablet TAKE 2 TABLETS (500 MG) BY ORAL ROUTE ONCE DAILY FOR 1 DAY THEN 1 TABLET (250 MG) BY ORAL ROUTE ONCE DAILY FOR 4 DAYS active Not Available Not Available No t Available meloxicam 15 mg tablet Take 1 tablet every day by oral route for 90 days. 2023 active Not Available Not Available Not Avai lable sumatriptan 25 mg tablet 03/02 completed Not Available Not Available Not Available ondansetron HCl 4 mg tablet 03/02 completed Not Available Not Available Not Available prednisone 20 mg tablet TAKE 3 TABLETS BY MOUTH DAILY FOR 5 DAYS, 2 TABS FOR 3 DAYS, 1 TAB FOR 3 DAYS THEN STOP 06/27 completed Not Available Not Available Not Available ropinirole 3 mg tablet Take 1 tablet by mouth once daily 2024 active Not Available Not Available Not Avai lable phentermine 37.5 mg tablet Take 1 tablet every day by oral route. 05/15 completed Not Available Not Available Not Available valproic acid 250 mg capsule TAKE 2 CAPSULES BY MOUTH 2 TIMES DAILY 05/15 completed Not Available Not Available Not Available sulfamethox azole 800 mg-trimetho prim 160 mg tablet 03/02 completed Not Available Not Available Not Available hydrocodone 10 mg-acetamin ophen 325 mg tablet 03/02 completed Not Available Not Available Not Available tramadol 50 mg tablet TAKE 1 TABLET BY MOUTH ONCE DAILY NEEDED FOR MODERATE TO SEVERE PAIN 06/27 completed Not Available Not Available Not Available triamcinolo ne acetonide 0.1 % topical cream APPLY CREAM EXTERNALL Y TO AFFECTED AREA TWICE DAILY active Not Available Not Available No t Available prednisone 10 mg tablets in a dose pack Take 1 tab by mouth, 3 times a day for 3 daysTake 1 tab by mouth 2 times a day for 2 daysTake 1 tab by mouth once a day for 1 day 07/19 completed Not Available Not Available Not Available propranolol 40 mg tablet Take 1 tablet twice a day by oral route for 90 days. 05/15 completed Not Available Not Available Not Available ropinirole 0.25 mg tablet Take 1 tablet 3 times a day by oral route. 03/02 completed Not Available Not Available Not Available Kenalog 10 mg/mL suspension for injection Take 40 mg by injection route. 05/15 completed [facility]: [phone] Not Available Not Available Not Available amlodipine 10 mg tablet TAKE 1 TABLET BY MOUTH EVERY DAY 05/15 completed Not Available Not Available Not Available ropinirole 2 mg tablet TAKE 1 TABLET BY MOUTH ONE TO THREE HOURS BEFORE BEDTIME active Not Available Not Available No t Available nystatin 100,000 unit/gram topical cream APPLY CREAM TOPICALLY TO AFFECTED AREA TWICE DAILY 2024 active Not Available Not Available Not Avai lable ergocalcife rol (vitamin D2) 1,250 mcg (50,000 unit) capsule Take 1 capsule every week by oral route. active Not Available Not Available No t Available nystatin 100,000 unit/gram topical powder APPLY POWDER TOPICALLY TO AFFECTED AREA TWICE DAILY 2024 active Not Available Not Available Not Avai lable ibuprofen 600 mg tablet 03/02 completed Not Available Not Available Not Available methylpredn isolone 4 mg tablets in a dose pack TAKE BY MOUTH DIRECTED ON INSIDE OF PACKAGE active Not Available Not Available No t Available amoxicillin 875 mg-potassiu m clavulanate 125 mg tablet TAKE 1 TABLET BY MOUTH EVERY 12 HOURS FOR 7 DAYS active Not Available Not Available No t Available Euflexxa 10 mg/mL (mw 2.4-3.6 million) intra-artic ular syringe Inject 5 mL by intra-art icular route. 05/15 completed Not Available Not Available Not Available amlodipine 03/02 completed Not Available Not Available Not Available valproic acid 03/02 completed Not Available Not Available Not Available Gavilyte-C 240 gram-22.72 gram-6.72 gram-5.84 gram oral solution TAKE 4000ML BY MOUTH ONE TIME FOR 1 DOSE. FOLLOW PRESCRIBI PHYSICIAN S INSTRUCTI ONS ONLY. THESE WERE SENT BY MAIL OR EMAIL. active Not Available Not Available No t Available ropivacaine (PF) 5 mg/mL (0.5 %) injection solution Take 40 mg by injection route. 05/15 completed Not Available Not Available Not Available Aimovig Autoinjecto r 70 mg/mL subcutaneou s auto-inject or INJECT 1 ML SUBCUTANE OUSLY ONCE EVERY MONTH active Not Available Not Available No t Available Aimovig Autoinjecto r 2022 active Not Available Not Available Not Avai rubina Parsons ODT 75 mg disintegrat ing tablet TAKE ONE TABLET BY MOUTH DAILY NEEDED 05/15 completed Not Available Not Available Not Available Vitals Date Recorded Body height Body mass index (BMI) Body weight Body temperature Heart rate Oxygen saturation Oxygen saturation in Arterial blood by Pulse oximetry Systolic blood pressure Diastolic blood pressure Provider Name and Address Organization Details Last Updated DateTime 4 157.48 cm 38.2 kg/m2 66732.8 1 g 98 [degF] 97 /min 99 % 99 % 136 mm[Hg] 74 mm[Hg] [facility] [place] [employer] [facility] 4 10:09:33 Date Recorded Body height Body mass index (BMI) Body weight Body temperature Heart rate Oxygen saturation Oxygen saturation in Arterial blood by Pulse oximetry Systolic blood pressure Diastolic blood pressure Provider Name and Address Organization Details Last Updated DateTime 4 157.48 cm 37.7 kg/m2 49125.0 3 g 98.2 [degF] 102 /min 98 % 98 % 130 mm[Hg] 80 mm[Hg] Carmenza Hameed RN [facility] [employer] [facility] 4 15:05:48 Date Recorded Body height Body mass index (BMI) Body weight Heart rate Respiratory rate Oxygen saturation Oxygen saturation in Arterial blood by Pulse oximetry Systolic blood pressure Diastolic blood pressure Provider Name and Address Organization Details Last Updated DateTime 3 157.48 cm 34.8 kg/m2 57020.5 5 g 73 /min 14 /min 99 % 99 % 137 mm[Hg] 97 mm[Hg] Radha Baca [facility] [employer] [facility] 3 09:13:38 Social History Question Answer Notes LastModified by [employer] Details LastModified Time Tobacco Smoking Status Never Smoker Lanette [email or web address], [facility] [employer] [facility] 07/17/2023 09:09:10 If You Are , What Was Your Level Of Alcohol Consumption Prior To ? None Information not available 07/17/2023 What Is Your Level Of Caffeine Consumption? Occasional [id number] Information not available 11/29/2022 In The 14 Days Before Symptom Onset, Have You Had Close Contact With A Laboratory-confirm ed COVID-19 While That Case Was Ill? No Information n ot available 07/17/2023 In The 14 Days Before Symptom Onset, Have You Had Close Contact With A Person Who Is Under Investigation For COVID-19 While That Person Was Ill? No Information not available 07/17/2023 What Type Of Diet Are You Following? REGULAR [id number] Information not available 11/29/2022 What Was The Date Of Your Most Recent Tobacco Screening? 02/15/2023 Information not available 07/17/2023 Has Tobacco Cessation Counseling Been Provided? No Information not available 07/17/2023 Do You Have Any Dietary Restrictions? No Information not available 07/17/2023 Sex: Unknown Functional Status Question Answer Note LastModified by [employer] Details LastModified Time Do you use any illicit or recreational drugs? No Information not available 07/17/2023 Do you or have you ever used any other forms of tobacco or nicotine? No Information not available 07/17/2023 What is your level of alcohol consumption? None [id number] Information not available 11/29/2022 What is your exercise level? None [id number] Information not available 11/29/2022 Mental Status None recorded. Family History Relationship Description Onset Age of this Age Resolved Age Notes LastModified by Organization Details LastModified Time Mother Diabetes mellitus [email or web address] Not available 2022 16:40:29 Mother Hypertensive disorder [email or web address] Not available 2022 16:40:41 Unspecified Relation Diabetes mellitus [email or web address] Not available 2022 16:40:29 Medical History Condition Response ALLERGIES/HAYFEVER Y HEARTBURN / REFLUX Y Gynecological History Statement/Question Response Sexually Active? Y Menses Monthly Y STIs/STDs N Current Control Method None Breast Problems no Discharge no Obstetrics History GPAL:G 0 P 0 0 0 0 Immunizations Vaccine Type Date Status Note Provider Nam e and Address Organization Details Recorded Time Tdap 05/15/2024 completed Elena Rodriguez, [employer] [address] [facility] [address], [place], [address], [facility] 05/15/2024 10:52:58 Past Encounters Encounter ID Performer Location Encounter Start Date Encounter Closed Date Diagnosis/Indication Diagnosis SNOMED-CT Code Diagnosis ICD10 Code Diagnosis Note [id number] AMBER Lawton S_[facility] [address] [place] [address] 03/02/2022 00:00:00 03/02/2022 11:14:54 [id number] AMBER Lawton S_[facility] [address] [place] [address] 05/26/2022 00:00:00 05/26/2022 10:54:12 [id number] MD GILBERT Escalante_[facility] [address] [address] 06/27/2022 00:00:00 06/27/2022 09:19:30 [id number] MD GILBERT Escalante_[facility] [address] [address] 08/08/2022 00:00:00 08/08/2022 09:13:34 [id number] AMBER [facility]ton[facility] [place] [address] [facility] [address] [place] [address] 10/03/2022 00:00:00 10/03/2022 10:32:36 [id number] Yonathan Hagen MD S_GMG [address] [address] 10/10/2022 00:00:00 10/12/2022 16:57:48 [id number] Yonathan Hagen MD S_GM[address] [address] 10/17/2022 00:00:00 10/17/2022 09:43:02 [id number] Yonathan Hagen MD S_[facility] [address] 10/24/2022 00:00:00 10/24/2022 09:12:56 [id number] AMBER Lawton [facility] [place] [address] [place] [address] [address] 10/31/2022 00:00:00 10/31/2022 10:53:03 [id number] AMBER Casillas S_[facility] [address] 12/05/2022 09:09:28 12/05/2022 10:43:01 Pain of bilateral knee joints 7843833179 02457 M25.561 M25.562 Bilateral osteoarthritis of knees 1880375147 46294 M17.0 [id number] Yonathan Hagen MD [facility] [place] [address] [address] [place] [address] 12/14/2022 14:54:15 12/14/2022 15:25:55 Bilateral osteoarthritis of knees 7942182331 31014 M17.0 Pain of bi lateral knee joints 8167451587 39561 M25.561 M25.562 [id number] AMBER Lawton [facility] [place] [address] [facility] [address] [place] [address] 01/23/2023 09:55:45 01/23/2023 12:41:38 Dietary management surveillance 460231752 Z71.3 She stopped taking the phentermin e, states it was not covered by insurance and she was experienci ng constipati on. Since then she has just been working on lifestyle changes. She states she started a new job so she is feeling much better mentally, exercising more. She would like to continue to work on weight loss through lifestyle and hold off on any medication at this time. Discussed healthy eating/exe rcise. She will reach out when needed. 10/31/22: She is down 6lbs. She is happy with the results she has seen.Marlene nue phentermin e 2 more months then 1 month off. HR/BP stable.F/u in 3 months. 10/03/22: Discussed healthy eating/exe rcise. Healthy eating packet given today in office.Leonard salinas do trial of phentermin e. HR/BP stable.F/u in 1 month. [id number] Cory Hampton DPM S_[facility] [place] [address] [facility] [address] [place] [address] 02/15/2023 16:33:51 02/15/2023 17:13:46 Pain in right foot 2424557684 12637 M79.671 x-rays 01-29-23- for acute fractureRe peat x-rays Sprain of right foot 572 6508792 7151053 S93.601A minimal walkingRic e therapyFol low-up post testing Strain of peroneal tendon 521351202 S86.311A as above [id number] Cory Hampton DPM [facility] [place] [address] [place] [address] 03/08/2023 09:02:48 03/08/2023 09:40:24 Sprain of right foot 6774140683 0309290 S93.601A as above Sprain of lateral ligament of ankle joint 149797735 S93.491D ultrasound positive for complete rupture of ATFL ligamentri ce therapyCon tinue cam bootPhysic al therapy for 2 monthsfoll ow-up 2 months Peroneal t endinitis of right lower limb 2798861967 00869 M76.71 as above [id number] Cory Hampton DPM S_[facility] [place] [address] [place] [address] 04/17/2023 09:54:30 04/17/2023 10:23:39 Sprain of lateral ligament of ankle joint 581433286 S93.491D ultrasound positive for complete rupture of ATFL ligamentri ce therapyCon tinue cam bootPhysic al therapy- hold off until testing performedo rder MRI right ankle without contrastfo llow-up post testing Peroneal t endinitis of right lower limb 0071679744 21346 M76.71 as above Sprain of right foot 094 9698594 9409052 S93.601A as above [id number] Cory Hampton DPM [facility] [place] [address] [place] [address] 05/08/2023 17:35:25 05/31/2023 20:38:01 Sprain of right foot 4780564282 2812208 S93.601A MRI reviewedco ntinue cam bootrice therapyphy sical therapy continuefo llow-up after physical therapy Peroneal t endinitis of right lower limb 6069379981 72754 M76.71 as above [id number] Cory Hampton DPM [facility] [place] [address] [place] [address] 06/12/2023 14:09:49 06/12/2023 16:23:49 Sprain of right foot 4926025379 4646538 S93.601A MRI reviewedco ntinue cam bootrice therapyphy sical therapy Finish physical therapyfol low-up after physical therapy Sprain of lateral ligament of ankle joint 834609997 S93.491D ultrasound positive for complete rupture of ATFL ligamentas above Strain of peroneal tendon 654306865 S86.311A as above [id number] Cory Hampton DPM S_[facility] Podiatry [address] [address] 07/17/2023 09:08:58 07/17/2023 09:59:57 Sprain of right foot 4433830071 0473557 S93.601A May DC Cam boot and obtain over-the-c ounter lace-up ankle braceconti nue at-home physical therapyric e therapyphy sical therapy has not started physical therapyfol low-up after physical therapy Sprain of lateral ligament of ankle joint 578024402 S93.491D ultrasound positive for complete rupture of ATFL ligamentas above [id number] KALPESH Stack [facility] [address] [place] [address] 05/15/2024 10:03:04 05/15/2024 10:55:30 Adult health examination 603543796 Z00.00 Z00.01 Screening for malignant neoplasm of breast 912662854 Z12.39 Screening for malignant neoplasm of colon 994591434 Z12.11 Active or passive immunization 563694866 Z23 Migraine 15845985 G43.90 9 Restless legs 24951778 G 25.81 Pain of mu ltiple joints 47955069 M25.50 Candidiasis of skin 4988 3006 B37.2 [id number] KALPESH Stack [facility] Primary Care [address] [place] [address] 05/23/2024 10:44:59 05/23/2024 11:02:06 [id number] KALPESH Stack [facility] Primary Care [address] [place] [address] 06/26/2024 14:53:19 06/26/2024 15:31:24 Gynecologic examination 75266652 Z01.419 patient tolerated well.Will contact patient with results. Pain in throat 357491018 R07.0 Discussed antibiotic therapy and follow up as needed. Patient verbalized understand ing. Health Concerns Section Related Observation LastModified by Organization Detai ls LastModified Time None Recorded Concern Status LastModified by Organization Details LastModified Time None Recorded Advance Directives Directive None Recorded Payers Insurance Date Sequence Insurance Name Policy Number Policy Lloyd Covered Member ID Lloyd Member ID Guarantor Name 09/22/2024 1 [facility] [id number] [facility] 06/25/2024 1 [facility] (MEDICAID HMO) [id number] Saira Daniel Deven [id number] Saira Carvalho Notes Date Note Type Note Provider Name and Address Organization Details Recorded Time 06/12/2023 text/html Patient is a 48-year-old female who returns the office for follow-up on sprain of the ankle and tendon pain. Patient states that she has went to 1 week of physical therapy and states that she never rescheduled due to them being busy. Patient was given exercise and has been doing them at home as well as using a cam boot daily. Patient states she has improved but continues have some mild tenderness along the fibular notch along the peroneal tendon and at the anterior talofibular ligament. Patient denies any other pedal complaints. Cory Hampton DPM [address] [facility] [address], [place], [address], [facility] [employer] [employer] 06/12/2023 15:25:45 07/17/2023 text/html . Patient is a 48-year-old female who returns the office for follow-up on right foot/ ankle sprain. Patient states overall she is doing 80% better. Patient states she has not yet been able to obtain physical therapy but has been doing some at-home exercises. Patient denies any significant pain with walking. Patient denies any giving out of the ankle with weight-bearing. Patient denies any other complaints. Cory Hampton DPM [address] [facility] [address], [place], [address], [facility] [employer] 07/17/2023 09:31:09 05/15/2024 text/html Patient is a 49 year old female that presents to the office for annual wellness. Patient denies all medical concerns at this time including chest pain and shortness of breath, nausea vomiting and diarrhea. Patient reports her ropinirole wears off about 2AM and she has not been sleeping due to restless leg. Patient is also concerned with yeast infection under bilateral breast. Patient reports it has been an ongoing issue the last several months, typically treats with Triamcinolone cream however it has not been as helpful this last month. [id number] s not see TELECOMMUNICATIONS OFFICER. PAP needed.Mammogram-or derCologuard-ordere dFlu-declinesCovid- UTDTdap-ordered KALPESH Stack [address] [facility] [address], [place], [address], [facility] 05/15/2024 10:53:48 06/26/2024 text/html Patient is a 49 year old female that presents to the office for WWE. Patient reports continuation of chest pressure, body aches, shortness of breath and dry cough. Patient was prescribed Z-rui on 06/13, symptoms improved for a day or two and then returned. Patient denies chest pain, nauesa, vomiting, diarrhea, sore throat. Patient denies fevers, chills and ear pain. Patient reports she has been taking OTC Nyquil for symptoms without relief. Patient denies known sick contacts. KALPESH Stack [address] [place] [address], [place], [address], [facility] 07/01/2024 09:19:13 OBGyn Episode No OBEpisode recorded.
--- OUTSIDE RECORDS SUMMARY | 2025-03-30 19:42 | XMS_ITS ---
Author Organization [email or web address], [facility] Address [address] [place] [address] Care Team Providers Care Maintenance Service Technician Name Role Phone Abdulkadir WALTER, Jude Primary Care Provider Eric Barnett Unavailable [phone] REASON FOR VISIT Positive cologuard 5ft2 200 Encounters Encounter Location Date Provider Diagnosis [facility] [address] [place] [address] 07/01/2024 Eric Perdue Plan Of Treatment No Information Progress Notes * Saira ARTEAGA EDOB:1975 (50 yo F)Acc No.[id number]:07/01/2024 Patient: Saira TRIPLETT Provider: Josefina Perdue MD :1975 A ge:49 Y S ex:Female Date:07/01/2024 Address:[address] [place], [place] [id number] Pcp:Jude Panchal MD Subjective: * Chief Complaints: * 1 . Positive cologuard 5ft2 200. * Medical History: Objective: * Vitals: Assessment: Plan: * Treatment: * Images: * Electronic signature of Mine Perdue MD on 03/30/2025 at 07:42 PM CDT Sign off status: Pending * Provider: Josefina Perdue MD Date: 1 Generated for Printi ng/Faxing/eTransmitting on: 0 03/30/2025 07:42 PM CDT
--- OUTSIDE RECORDS SUMMARY | 2025-03-30 19:42 | XMS_ITS | Encounter Summary ---
Author Organization [facility] Address 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
--- OUTSIDE RECORDS SUMMARY | 2025-03-30 19:42 | XMS_ITS | Encounter Summary ---
Author Organization [facility] Address 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
--- OUTSIDE RECORDS SUMMARY | 2025-03-30 19:42 | XMS_ITS | Encounter Summary ---
Author Organization [facility] Address [address] [place] [address] Care Team Providers Care Night Baker Name Role Phone Isabelle Velázquez MD Unavailable [phone] Radha Espinoza PA-C Primary Care Provider [phone] Reason for Visit * Reason Onset Date Comments MEDICATION REFILL 06/13/2022 Encounter Details Date Type Department Care Team (Late st Contact Info) Description 06/13/2022 Refill [facility], [facility] [place] [address] Velma Pino MD [facility] [place] [address] MEDICATION REFILL Social History Tobacco Use Types Packs/Day Years Used Date Smoking Tobacco: Never Smokeless Tobacco: Never Alcohol Use Standard Drinks/Week Comments No 0 (1 standard drink = 0.6 oz pur e alcohol) AUDIT-C Answer Date Recorded Q1: How often do you have a drink containing alc ohol? Never 12/04/2021 Q2: How many drinks containi ng alcohol do you have on a typical day when you are drinking? 1 or 2 12/04/2021 Q3: How often do you have six or more drinks on one occasion? Never 12/04/2021 PHQ-2 Answer Date Recorded PHQ2 TOTAL SCORE 0 12/06/2021 Comments No Sex and Gender Information Value Date Recorded Sex Assigned at Not on file Legal Sex Female 5:19 AM BEAN VINER Gender Identity Not on file Sexual Orientation Not on file COVID-19 Exposure Response Date Recorded In the last 10 days, have yo u been in contact with someone who was confirmed or suspected to have Coronavirus/COVID-19? No / Unsure 05/22/2022 8:41 AM CDT documented as of this encounter Functional Status * Is person deaf or have serious hearing difficulty? Answer Date of Assessment Author No 12/04/2021 2:02 PM BEAN VINER Tiesha Camarena RN * Is person blind or have serious difficulty seeing? Answer Date of Assessment Author Yes 12/04/2021 2:02 PM BEAN VINER Tiesha Camarena RN * Does person have serious difficulty walking/climbing stairs? Answer Date of Assessment Author No 12/04/2021 2:02 PM BEAN VINER Tiesha Camarena RN * Does person have difficulty dressing/bathing? Answer Date of Assessment Author No 12/04/2021 2:02 PM Tiesha Chang RN * Does person have difficulty doing errands alone? Answer Date of Assessment Author No 12/04/2021 2:02 PM Tiesha Friend RN documented as of this encounter Mental Status * Does person have difficulty concentrating/remembering/making decisions? Answer Entry Date Author No 12/04/2021 2:02 PM Tiesha Friend RN documented in this encounter Plan of Treatment Not on file documented as of this encounter Visit Diagnoses Not on filedocumented in this encounter Care Teams Night Baker Relationship Specialty Start Date End Date Isabelle Velázquez MD [address] [place] [address] PCP - OBGYN 05/13/08 Radha Espinoza PA-C [address] [place] [address] [place] [address] PCP - General Physician Diesel Technician Mechanic 05/22/22 documented as of this encounter
--- OUTSIDE RECORDS SUMMARY | 2025-03-30 19:42 | XMS_ITS | Encounter Summary ---
Author Organization [facility] Address 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
--- OUTSIDE RECORDS SUMMARY | 2025-03-30 19:42 | XMS_ITS | Encounter Summary ---
Author Organization [facility] Address 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
--- OUTSIDE RECORDS SUMMARY | 2025-03-30 19:42 | XMS_ITS | Clinical Summary ---
Author Organization [facility] Address [address] [facility] [place] [address] Care Team Providers Care Wheel Fitter Name Role Phone Isabelle Velázquez MD Unavailable [phone] Radha Espinoza PA-C Primary Care Provider [phone] Source Comments [facility],non-owned Affiliates and Associated Physician Practices is amultiple site organization consisting of ambulatory clinics and hospital sitesin [place], [place], [place] and [place]. This disclosure is being madepursuant to the Care Everywhere program and may not contain all information available regarding this patient. Last updated 18.[facility] Allergies Active Allergy Reactions Criticality Noted Date Comments Compazine 03/20/2008 Nitrofurantoin Monohydrate Macrocrystals 06/25/2008 Promethazine Hcl 06/25/2008 Zolpidem Psychiatric High 09/01/2010 Anxiety Zolpidem Tartrate 03/20/2008 PATIENT FREAKS OUT Medications * Be aware that medications may not be up to date on this document. Alwaysverify current medications with the patient. cyclobenzaprine (FLEXERIL) 10 MG tablet Take 1 (one) tablet by mouth 3 times daily as needed for Muscle Spasms 15 tablet 12/16/19 22 Active rOPINIRole (REQUIP) 2 MG tablet 1 TAB 1-3 HOURS BEFORE BED 12/16/19 22 Active meloxicam (Mobic) 15 MG tablet Take 1 (one) tablet by mouth once daily 08/15/20 22 Active predniSONE (Deltasone) 10 MG tablet TAKE 1 TABLET BY MOUTH THREE TIMES DAILY FOR 3 DAYS, 1 TAB TWICE DAILY X 2 DAYS, 1 TAB ONCE X 1 DAY 01/24/20 23 Active erenumab-aooe (Aimovig) 70 MG/ML auto injector penIndications: Migraine with aura and without status migrainosus, not intractable Inject 1 mL subcutaneously every 30 days 1 mL 11 02/08/20 23 Active Active Problems Problem Noted Date Diagnosed Date Osteoarthritis of both knees 12/05/202207/2023 Osteoarthrosis 10/10/2022 02/07/2023 Arthralgia of both knees 06/27/2022 023 Hirsutism 12/19/2021 Obesity 12/19/2021 Primary hypertension 12/15/2021 Vision loss 12/04/2021 Migraine 12/04/2021 CF (cystic fibrosis) 05/13/2008 Overview (05/13/2008): 11/2007 NEG Immunizations Immunization Administration Dates Next Due HEP B VACCINE, PED/ADOL 05/26/2004 INFLUENZA VACCINE 08/31/2022 Family History Relation Name Status Comments Other 1 pt adopted,hx unknown Other Other 2 fob-negrita briana Alive Social History Tobacco Use Types Packs/Day Years Used Date Smoking Tobacco: Never Smokeless Tobacco: Never Tobacco Cessation:Counseling Given: Not Answered Alcohol Use Standard Drinks/Week Comments No 0 [...] on file Legal Sex Female 5:19 AM CERTIFIED NURSING ASSISTANT INSTRUCTOR Gender Identity Not on file Sexual Orientation Not on file Last Filed Vital Signs Vital Sign Reading Time Taken Comments Blood Pressure 137/93 02/07/2023 9:11 AM CDT Pulse 73 02/07/2023 9:11 AM CDT Temperature 37.1 C (98.7 F) 02/07/2023 9:11 AM CDT Respiratory Rate 18 12/15/2021 1:05 PM CDT Oxygen Saturation 98% 02/07/2023 9:11 AM CDT Inhaled Oxygen Concentration - - Weight 113.9 kg (251 lb) 02/07/2023 9:11 AM CDT Height 157.5 cm (5' 2) 02/07/2023 9:11 AM CDT Body Mass Index 45.91 02/07/2023 9:11 AM CDT Plan of Treatment Health Maintenance Due Date Last Done Comments COLOGUARD (AGES 45-75) - COLON CA SCREENING 1977 COLON MONITORING 1977 COLONOSCOPY - COLON CA SCREENING 1977 CT COLONOGRAPHY - COLON CA SCREENING 1977 Colorectal Cancer Screening 1977 FIT - COLON CA SCREENING 1977 FLEX SIG - COLON CA SCREENING 1977 LIPID TESTING 1977 MAMMOGRAM 1977 DTAP/TDAP/TD VACCINES (1 - Tdap) 1996 HEPATITIS B VACCINE (1 of 3 - 19+ 3-dose series) 1996 05/26/2004 PAP SMEAR 12/02/2001 12/02/1998 COVID-19 VACCINE (3 - season) 2024 11/12/2021, 02/19/2021 DEPRESSION SCREENING 10/01/2024 05/22/2022 SCREENING FOR DIABETES 05/22/2025 , 12/06/2021, 12/06/2021, Additional history exists INFLUENZA VACCINE (Season Ended) 2025 08/31/2022 ZOSTER VACCINE (1 of 2) 2027 HEPATITIS C SCREENING Completed 12/26/2007 HIV SCREENING Completed 12/26/2007 HIB VACCINE Aged Out No longer eligi ble based on patient's age to complete this topic HPV VACCINE Aged Out No longer eligi ble based on patient's age to complete this topic MENINGOCOCCAL (Group B) VACCINE SHARED DECISION-MAKING Aged Out No longer eligible based on patient's age to complete this topic MENINGOCOCCAL GROUPS A/C/Y/W VACCINE Aged Out No longer eligible based on patient's age to complete this topic PNEUMOCOCCAL VACCINE Aged Out No long er eligible based on patient's age to complete this topic Procedures Procedure Name Priority Date/Time Associated Diagnosis Comments COMPREHENSIVE METABOLIC PANEL Routine 05/22/2022 9:41 AM CDT Complicated migraine HEPATITIS C ANTIBODY W/REFLEX RIBA 12/26/2007 2:57 PM CDT HIV 1/0/2 ANTIBODIES W CONFIRM 12/26/2007 2:57 PM CDT CYTOLOGY PAP PHOTO RETOUCHER MARÍA ELENA 12/02/1998 10:2 0 AM CERTIFIED NURSING ASSISTANT INSTRUCTOR from Last 3 Months or Most Recently Relevant to Health Maintenance Results * (ABNORMAL) COMPREHENSIVE METABOLIC PANEL (05/22/2022 9:41 AM CDT) BUN 6(L) 7 - 26 mg/dL 05/22/2022 11:01 AM [facility] Creatinine 0.75 0.56 - 0.96 mg/dL 05/22/2022 11:01 AM [facility] Sodium 140 136 - 145 mmol/L 05/22/2022 11:01 AM [facility] Potassium 3.9 3.5 - 4.5 mmol/L 05/22/2022 11:01 AM [facility] Chloride 105 98 - 107 mmol/L 05/22/2022 11:01 AM [facility] CO2 22 22 - 29 mmol/L 05/22/2022 11:01 AM [facility] Glucose 115 70 - 115 mg/dL 05/22/2022 11:01 AM [facility] Calcium 9.7 8.4 - 10.2 mg/dL 05/22/2022 11:01 AM [facility] Protein Total 7.3 6.0 - 8.3 g/dL 05/22/2022 11:01 AM [facility] Albumin 3.4 3.4 - 5.0 g/dL 05/22/2022 11:01 AM [facility] Bilirubin Total 0.4 0.2 - 1.2 mg/dL 05/22/2022 11:01 AM [facility] Alkaline Phosphatase 65 40 - 150 U/L 05/22/2022 11:01 AM [facility] ALT 14 5 - 55 U/L 05/22/2022 11:01 AM [facility] AST 15 5 - 34 U/L 05/22/2022 11:01 AM [facility] Anion Gap 17 8 - 18 05/22/2022 11:01 AM [facility] BUN/Creatinine Ratio 8 7 - 23 05/22/2022 11:01 AM [facility] Osmolality Calculated 289 270 - 300 mOsm/kg 05/22/2022 11:01 AM [facility] Albumin/Globulin Ratio 0.9(L) 1.1 - 2.3 05/22/2022 11:01 AM [facility] eGFR by CKD-EPI >90 >=90 mL/min/1.7 3 m2 05/22/2022 11:01 AM [facility] Blood BLOOD SPECIMEN / Unknown Lab Venipuncture / Unknown 05/22/2022 9:41 AM CDT 05/22/2022 10:24 AM CDT Benjamin James MD LAB - CHEMISTRY ORDERABLES F inal Result [address] [address], [facility] [phone] * HIV 1/0/2 ANTIBODIES W CONFIRM (PO REF LAB) (12/26/2007 2:57 PM CDT) HIV-1 Antibody EIA [facility] INSURANCE BILL HIV-1 Antibody O.D. Ratio <1.00 <1.00 [facility] INSURANCE BILL Comment:Index Value: Specime n reactivity relative to the negative cutoff. HIV-1/HIV-2 Non Reactive Non Reactive [facility] INSURANCE BILL 12/26/2007 2:57 PM CDT 12/26/2007 8:47 PM CDT Narrative Resulting Agency Comment [facility] [phone] Isabelle Velázquez MD LAB - MICROBIOLOGY ORDERABL ES Final Result Performing Organization Address [facility] de Phone Number [facility] INSURANCE BILL [address] [place] [address] * HEPATITIS C RIBA (12/26/2007 2:57 PM CDT) Hepatitis C Virus Antibody S/CO Ratio <0.1 0.0 - 0.9 s/co ratio [facility] INSURANCE BILL Comment: Negative Not infected with HCV, unless recent infection is suspected or other evidence exists to indicate HCV infection. 12/26/2007 2:57 PM CDT 12/26/2007 8:47 PM CDT Narrative Resulting Agency Comment [address] [phone] Isabelle Velázquez MD LAB - CHEMISTRY ORDERABLES Final Result Performing Organization Address [facility] de Phone Number [facility] INSURANCE BILL [address] [place] [address] * CYTOLOGY PAP PHOTO RETOUCHER (12/02/1998 10:20 AM CERTIFIED NURSING ASSISTANT INSTRUCTOR) Result CASE NUMBER [id number] Comment: ORDERING PHYSICIAN JR ACUNA SPECIMEN TYPE PAP Smear GROSS DESCRIPTION ONE SLIDE RECEIVED FOR CYTOLOGIC EXAMINATION. SPECIMEN ADEQUACY CELLULARITY APPEARS SUFFICIENT. Specimen Source CERVICAL/VAGINAL SAMPLE DIAGNOSIS WITHIN NORMAL LIMITS *Disclaimer-Pap Smear THE PAP SMEAR IS ONLY A SCREENING PROCEDURE TO AID IN THE DETECTION OF CERVICAL CANCER AND ITS PRECURSORS. IT IS NOT A DIAGNOSTIC PROCEDURE AND SHOULD NOT BE USED THE SOLE MEANS TO DETECT CERVICAL CANCER. BOTH FALSE NEGATIVE AND FALSE POSITIVE RESULTS HAVE BEEN EXPERIENCED. MISCELLANEOUS SAMPLES / Unknown 12/02/1998 10:20 AM CERTIFIED NURSING ASSISTANT INSTRUCTOR 12/02/1998 1:59 PM CERTIFIED NURSING ASSISTANT INSTRUCTOR Historical Provider LAB - PATHOLOGY/CYTOLOGY ORDERABLES Edited from Last 3 Months or Most Recently Relevant to Health Maintenance Insurance [facility] [place] [address] [place] [address] Advance Directives * Full Code (Latest Code Status on File) Date Activated Date Inactivated Comments 12/04/2021 6:25 AM 12/06/2021 5:44 PM Care Teams Wheel Fitter Relationship Specialty Start Date End Date Isabelle Velázquez MD [address] [place] [address] [place] [address] PCP - OBGYN 05/13/08 Radha Espinoza PA-C [address] [place] [address] PCP - General Physician Shredded Filler Cutter Operator 05/22/22
--- OUTSIDE RECORDS SUMMARY | 2025-03-30 19:42 | XMS_ITS | Encounter Summary ---
Author Organization [facility] Address [address] [place] [address] Care Team Providers Care Upholsterer Outside Name Role Phone Unavailable Primary Care Provider Mckenna e Encounter Details Date Type Department Care Team (Late st Contact Info) Description 04/02/2001 Outpatient Historical [facility] [address] [place] [phone] Alf Blanco Social History Tobacco Use Types Packs/Day Years Used Date Smoking Tobacco: Never Assessed Comments Unknown Sex and Gender Information Value Date Recorded Sex Assigned at Female 07/15/2024 12:25 PM CDT Legal Sex Female 3:58 AM LENS INSERTER Gender Identity Female 07/15/2024 12:25 PM CDT Sexual Orientation Straight 07/15/2024 12 :25 PM CDT documented as of this encounter Plan of Treatment Not on file documented as of this encounter Visit Diagnoses Not on filedocumented in this encounter
--- OUTSIDE RECORDS SUMMARY | 2025-03-30 19:42 | XMS_ITS | Encounter Summary ---
Author Organization [facility] Address [address] [place] [address] Care Team Providers Care Bird Trapper Name Role Phone Isabelle Velázquez MD Unavailable [phone] Radha Espinoza PA-C Primary Care Provider [phone] Reason for Visit * Reason Onset Date Comments MEDICATION REFILL 06/19/2022 Encounter Details Date Type Department Care Team (Late st Contact Info) Description 06/19/2022 Refill [facility] [address] [place] [address], [place] [address] Benjamin James MD [address] [place] [address] [place] [address] MEDICATION REFILL Social History Tobacco [...] on file Legal Sex Female 5:19 AM AUTO BODY SERVICE MECHANIC Gender Identity Not on file Sexual Orientation [...] No 12/04/2021 2:02 PM Tiesha Friend RN * Is person blind or have serious difficulty seeing? Answer Date of Assessment Author Yes 12/04/2021 2:02 PM Tiesha Friend RN * Does person have serious difficulty walking/climbing stairs? Answer Date of Assessment Author No 12/04/2021 2:02 PM Tiesha Friend RN * Does person have difficulty dressing/bathing? Answer Date of Assessment Author No 12/04/2021 2:02 PM Tiesha Friend RN * Does person have difficulty doing errands alone? Answer Date of Assessment Author No 12/04/2021 2:02 PM Tiesha Friend RN documented as of this encounter Mental Status * Does person have difficulty concentrating/remembering/making decisions? Answer Entry Date Author No 12/04/2021 2:02 PM Tiesha Friend RN documented in this encounter Miscellaneous Notes * Telephone Encounter - Marquita De La Paz RN - 06/19/2022 7:38 AM CDT Refill Request Saira Carvalho YVES: 05/22/2022Aug due: rto x 4 months NOV scheduled: 09/27/2022 LRF: 03/07/2022 Qty Disp: 120 # of refills: 1 Allergies: Allergies Allergen Reactions ??? Zolpidem Psychiatric Anxiety ??? Compazine ??? Macrobid [Nitrofurantoin Monohydrate Macrocrystals] ??? Promethazine Hcl ??? Zolpidem Tartrate PATIENT FREAKS OUT Pended Medication Order: Requested Prescriptions Pending Prescriptions Disp Refills ??? valproic acid (Depakene) 250 MG capsule 120 capsule 1 Sig: Take 2 (two) capsules by mouth 2 times daily documented in this encounter Plan of Treatment Not on file documented as of this encounter Visit Diagnoses Not on filedocumented in this encounter Care Teams Bird Trapper Relationship Specialty Start Date End Date Isabelle Velázquez MD [address] [place] [address] PCP - OBGYN 05/13/08 Radha Espinoza PA-C [address] [place] [address] PCP - General Physician Environmental Specialist 05/22/22 documented as of this encounter
--- OUTSIDE RECORDS SUMMARY | 2025-03-30 19:42 | XMS_ITS | Encounter Summary ---
Author Organization [facility] Address [address] [place] [address] Care Team Providers Care Tassel Snipper Name Role Phone Unavailable Primary Care Provider Mckenna wilcox Encounter Details Date Type Department Care Team (Latest Contact Info) Description 03/04/2004 Outpatient Historical [facility] PATIENT IN A BED Dina Hoda Grace, DO [address] [place] [address] BONE DISORDER-ANTEPARTUM (Primary Dx) Social History Tobacco Use Types Packs/Day Years Used Date Smoking Tobacco: Never Assessed Comments Unknown Sex and Gender Information Value Date Recorded Sex Assigned at Female 07/15/2024 12:25 PM CDT Legal Sex Female 3:58 AM HEEL BLACKER Gender Identity Female 07/15/2024 12:25 PM CDT Sexual Orientation Straight 07/15/2024 12 :25 PM CDT documented as of this encounter Plan of Treatment Not on file documented as of this encounter Visit Diagnoses Diagnosis Bone and joint disorders of maternal back, pelvis, and lower limbs, antepartum(648.91)- Primary Bone and joint disorders of maternal back, pelvis, and lower limbs, antepartum documented in this encounter
--- OUTSIDE RECORDS SUMMARY | 2025-03-30 19:42 | XMS_ITS | Encounter Summary ---
Author Organization [facility] Address [address] [place] [address] Care Team Providers Care String Studies Director Name Role Phone Unavailable Primary Care Provider Mckenna e Encounter Details Date Type Department Care Team (Late st Contact Info) Description 04/04/2001 Outpatient Historical [facility] [address] [place] [phone] Alf lBanco Social History Tobacco Use Types Packs/Day Years Used Date Smoking Tobacco: Never Assessed Comments Unknown Sex and Gender Information Value Date Recorded Sex Assigned at Female 07/15/2024 12:25 PM CDT Legal Sex Female 3:58 AM GOVERNMENT PROGRAM MANAGER Gender Identity Female 07/15/2024 12:25 PM CDT Sexual Orientation Straight 07/15/2024 12 :25 PM CDT documented as of this encounter Plan of Treatment Not on file documented as of this encounter Visit Diagnoses Not on filedocumented in this encounter
--- OUTSIDE RECORDS SUMMARY | 2025-03-30 19:42 | XMS_ITS | Encounter Summary ---
Author Organization [facility] Address [address] [place] [address] Care Team Providers Care Lens Molding Equipment Operator Name Role Phone Unavailable Primary Care Provider Mckenna e Encounter Details Date Type Department Care Team (Latest Contact Info) Description 12/10/2001 Outpatient Historical [facility] Alf Blanco CONTRACEPTIVE MANGMT NEC (Primary Dx) Social History Tobacco Use Types Packs/Day Years Used Date Smoking Tobacco: Never Assessed Comments Unknown Sex and Gender Information Value Date Recorded Sex Assigned at Female 07/15/2024 12:25 PM CDT Legal Sex Female 3:58 AM DIRECTOR OF LEARNING Gender Identity Female 07/15/2024 12:25 PM CDT Sexual Orientation Straight 07/15/2024 12 :25 PM CDT documented as of this encounter Plan of Treatment Not on file documented as of this encounter Visit Diagnoses Diagnosis Other general counseling and advice for contraceptive management- Primary documented in this encounter
--- OUTSIDE RECORDS SUMMARY | 2025-03-30 19:42 | XMS_ITS | Encounter Summary ---
Author Organization [facility] Address [address] [place] [address] Care Team Providers Care Spring Assembler Supervisor Name Role Phone Unavailable Primary Care Provider Mckenna e Encounter Details Date Type Department Care Team (Late st Contact Info) Description 04/02/[address] [facility] [address] [place] [phone] Alf Blanco Social History Tobacco Use Types Packs/Day Years Used Date Smoking Tobacco: Never Assessed Comments Unknown Sex and Gender Information Value Date Recorded Sex Assigned at Female 07/15/2024 12:25 PM CDT Legal Sex Female 3:58 AM TANK PUMPER PANELBOARD Gender Identity Female 07/15/2024 12:25 PM CDT Sexual Orientation Straight 07/15/2024 12 :25 PM CDT documented as of this encounter Plan of Treatment Not on file documented as of this encounter Visit Diagnoses Not on filedocumented in this encounter
--- OUTSIDE RECORDS SUMMARY | 2025-03-30 19:42 | XMS_ITS | Encounter Summary ---
Author Organization [facility] Address [address] [place] [address] Care Team Providers Care Clerical Administrator Name Role Phone Unavailable Primary Care Provider Mckenna e Encounter Details Date Type Department Care Team (Late st Contact Info) Description 04/04/2001 Outpatient Historical [facility] [address] [place] [address] Otis Huddleston MD [address] [place] [address] Social History Tobacco Use Types Packs/Day Years Used Date Smoking Tobacco: Never Assessed Comments Unknown Sex and Gender Information Value Date Recorded Sex Assigned at Female 07/15/2024 12:25 PM CDT Legal Sex Female 3:58 AM MEAT BLENDER Gender Identity Female 07/15/2024 12:25 PM CDT Sexual Orientation Straight 07/15/2024 12 :25 PM CDT documented as of this encounter Plan of Treatment Not on file documented as of this encounter Visit Diagnoses Not on filedocumented in this encounter
[2025-03-30 19:43] VITALS: BP 149/96; PULSE 97; RESP 18; TEMP 36.8; O2SAT 100
--- OUTSIDE RECORDS SUMMARY | 2025-03-30 19:43 | XMS_ITS | Encounter Summary ---
Author Organization [facility] Address [address] [place] [address] Care Team Providers Care Short Filler Bunch Machine Operator Name Role Phone Unavailable Primary Care Provider Mckenna e Encounter Details Date Type Department Care Team (Latest Contact Info) Description 08/26/2001 Outpatient Historical [facility] PATIENT IN A BED Alf Hua MD [address] [facility] [address] [place] [address] DECREASED MOVMT-ANTEPARTUM (Primary Dx) Social History Tobacco Use Types Packs/Day Years Used Date Smoking Tobacco: Never Assessed Comments Unknown Sex and Gender Information Value Date Recorded Sex Assigned at Female 07/15/2024 12:25 PM CDT Legal Sex Female 3:58 AM INFECTIOUS DISEASE TECHNICIAN Gender Identity Female 07/15/2024 12:25 PM CDT Sexual Orientation Straight 07/15/2024 12 :25 PM CDT documented as of this encounter Plan of Treatment Not on file documented as of this encounter Visit Diagnoses Diagnosis Decreased movements, affecting management of mother, antepartum- Primary documented in this encounter
--- OUTSIDE RECORDS SUMMARY | 2025-03-30 19:43 | XMS_ITS | Encounter Summary ---
Author Organization [facility] Address [address] [place] [address] Care Team Providers Care Stock Saw Operator Name Role Phone Unavailable Primary Care Provider Mckenna e Encounter Details Date Type Department Care Team (Late st Contact Info) Description 08/20/2001 Outpatient Historical [facility] [address] [place] [phone] Alf Blanco Social History Tobacco Use Types Packs/Day Years Used Date Smoking Tobacco: Never Assessed Comments Unknown Sex and Gender Information Value Date Recorded Sex Assigned at Female 07/15/2024 12:25 PM CDT Legal Sex Female 3:58 AM COMPLAINT CLERK Gender Identity Female 07/15/2024 12:25 PM CDT Sexual Orientation Straight 07/15/2024 12 :25 PM CDT documented as of this encounter Plan of Treatment Not on file documented as of this encounter Visit Diagnoses Not on filedocumented in this encounter
--- OUTSIDE RECORDS SUMMARY | 2025-03-30 19:43 | XMS_ITS | Encounter Summary ---
Author Organization [facility] Address [address] [place] [address] Care Team Providers Care Concrete Mixing Plant Superintendent Name Role Phone Unavailable Primary Care Provider Mckenna e Encounter Details Date Type Department Care Team (Latest Contact Info) Description 09/09/2001 Outpatient Historical [facility] Atif Sanchez POOR GRTH-ANTEPART (Primary Dx) Social History Tobacco Use Types Packs/Day Years Used Date Smoking Tobacco: Never Assessed Comments Unknown Sex and Gender Information Value Date Recorded Sex Assigned at Female 07/15/2024 12:25 PM CDT Legal Sex Female 3:58 AM PILE DRIVER OPERATOR Gender Identity Female 07/15/2024 12:25 PM CDT Sexual Orientation Straight 07/15/2024 12 :25 PM CDT documented as of this encounter Plan of Treatment Not on file documented as of this encounter Visit Diagnoses Diagnosis Poor growth, affecting management of mother, antepartum condition or complication- Primary documented in this encounter
--- OUTSIDE RECORDS SUMMARY | 2025-03-30 19:43 | XMS_ITS | Encounter Summary ---
Author Organization [facility] Address [address] [place] [address] Care Team Providers Care Defence Force Member Other Ranks Name Role Phone Unavailable Primary Care Provider Mckenna e Encounter Details Date Type Department Care Team (Late st Contact Info) Description 08/29/2001 Outpatient Historical [facility] [address] [place] [phone] Alf Blanco Social History Tobacco Use Types Packs/Day Years Used Date Smoking Tobacco: Never Assessed Comments Unknown Sex and Gender Information Value Date Recorded Sex Assigned at Female 07/15/2024 12:25 PM CDT Legal Sex Female 3:58 AM STOCKROOM ASSOCIATE Gender Identity Female 07/15/2024 12:25 PM CDT Sexual Orientation Straight 07/15/2024 12 :25 PM CDT documented as of this encounter Plan of Treatment Not on file documented as of this encounter Visit Diagnoses Not on filedocumented in this encounter
--- OUTSIDE RECORDS SUMMARY | 2025-03-30 19:43 | XMS_ITS | Encounter Summary ---
Author Organization [facility] Address [address] [place] [address] Care Team Providers Care Thimble Press Operator Name Role Phone Unavailable Primary Care Provider Mckenna e Encounter Details Date Type Department Care Team (Late st Contact Info) Description 10/08/2001 Outpatient Historical [facility] [address] [place] [address] Melvin Valdovinos Social History Tobacco Use Types Packs/Day Years Used Date Smoking Tobacco: Never Assessed Comments Unknown Sex and Gender Information Value Date Recorded Sex Assigned at Female 07/15/2024 12:25 PM CDT Legal Sex Female 3:58 AM PRINT COLOR OPERATOR Gender Identity Female 07/15/2024 12:25 PM CDT Sexual Orientation Straight 07/15/2024 12 :25 PM CDT documented as of this encounter Plan of Treatment Not on file documented as of this encounter Visit Diagnoses Not on filedocumented in this encounter
--- OUTSIDE RECORDS SUMMARY | 2025-03-30 19:43 | XMS_ITS | Encounter Summary ---
Author Organization [facility] Address [address] [place] [address] Care Team Providers Care Residential Sales Manager Name Role Phone Unavailable Primary Care Provider Mckenna e Encounter Details Date Type Department Care Team (Late st Contact Info) Description 08/01/2001 Outpatient Historical [facility] Otis Huddleston MD [address] [facility] [address] [facility] [address] [place] [address] ABN GLUCOSE TOLERAN TEST (Primary Dx) Social History Tobacco Use Types Packs/Day Years Used Date Smoking Tobacco: Never Assessed Comments Unknown Sex and Gender Information Value Date Recorded Sex Assigned at Female 07/15/2024 12:25 PM CDT Legal Sex Female 3:58 AM CROWN CERAMIST Gender Identity Female 07/15/2024 12:25 PM CDT Sexual Orientation Straight 07/15/2024 12 :25 PM CDT documented as of this encounter Plan of Treatment Not on file documented as of this encounter Visit Diagnoses Diagnosis Abnormal glucose- Primary documented in this encounter
--- OUTSIDE RECORDS SUMMARY | 2025-03-30 19:43 | XMS_ITS | Encounter Summary ---
Author Organization [facility] Address [address] [place] [address] Care Team Providers Care Transportation Services Representative Name Role Phone Isabelle Velázquez MD Unavailable [phone] Radha Espinoza PA-C Primary Care Provider [phone] Encounter Details Date Type Department Care Team (Late st Contact Info) Description 12/05/2021 Ophth Exam [facility] [address] [place] [phone] Kvng Hagen MD [address] [place] [address] [place] [address] Social History Tobacco Use Types Packs/Day Years [...] on file Legal Sex Female 5:19 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
--- OUTSIDE RECORDS SUMMARY | 2025-03-30 19:43 | XMS_ITS | Encounter Summary ---
Author Organization [facility] Address [address] [place] [address] Care Team Providers Care Patient Service Rep Name Role Phone Unavailable Primary Care Provider Mckenna e Encounter Details Date Type Department Care Team (Latest Contact Info) Description 10/02/2001 Outpatient Historical HIS PATIENT IN A BED Luz Nunez MD [address] [place] [address] OTHER CURR COND-ANTEPARTUM (Primary Dx) Social History Tobacco Use Types Packs/Day Years Used Date Smoking Tobacco: Never Assessed Comments Unknown Sex and Gender Information Value Date Recorded Sex Assigned at Female 07/15/2024 12:25 PM CDT Legal Sex Female 3:58 AM CHILD SUPPORT OFFICER Gender Identity Female 07/15/2024 12:25 PM CDT Sexual Orientation Straight 07/15/2024 12 :25 PM CDT documented as of this encounter Plan of Treatment Not on file documented as of this encounter Visit Diagnoses Diagnosis Other current maternal conditions classifiable elsewhere, antepartum- Primary documented in this encounter
--- OUTSIDE RECORDS SUMMARY | 2025-03-30 19:43 | XMS_ITS | Encounter Summary ---
Author Organization [facility] Address [address] [place] [address] Care Team Providers Care Family Readiness Support Assistant Name Role Phone Unavailable Primary Care Provider Mckenna e Encounter Details Date Type Department Care Team (Late st Contact Info) Description 09/26/2001 Outpatient Historical [facility] [address] [place] [phone] Alf Blanco Social History Tobacco Use Types Packs/Day Years Used Date Smoking Tobacco: Never Assessed Comments Unknown Sex and Gender Information Value Date Recorded Sex Assigned at Female 07/15/2024 12:25 PM CDT Legal Sex Female 3:58 AM FILTRATION SUPERVISOR Gender Identity Female 07/15/2024 12:25 PM CDT Sexual Orientation Straight 07/15/2024 12 :25 PM CDT documented as of this encounter Plan of Treatment Not on file documented as of this encounter Visit Diagnoses Not on filedocumented in this encounter
--- OUTSIDE RECORDS SUMMARY | 2025-03-30 19:43 | XMS_ITS | Encounter Summary ---
Author Organization [facility] Address [address] [place] [address] Care Team Providers Care Track Laying Equipment Operator Name Role Phone Unavailable Primary Care Provider Mckenna e Encounter Details Date Type Department Care Team (Late st Contact Info) Description 06/21/2001 Outpatient Historical [facility] [address] [place] [address] Melvin Valdovinos Social History Tobacco Use Types Packs/Day Years Used Date Smoking Tobacco: Never Assessed Comments Unknown Sex and Gender Information Value Date Recorded Sex Assigned at Female 07/15/2024 12:25 PM CDT Legal Sex Female 3:58 AM APPLICATION SUPPORT ANALYST Gender Identity Female 07/15/2024 12:25 PM CDT Sexual Orientation Straight 07/15/2024 12 :25 PM CDT documented as of this encounter Plan of Treatment Not on file documented as of this encounter Visit Diagnoses Not on filedocumented in this encounter
--- OUTSIDE RECORDS SUMMARY | 2025-03-30 19:43 | XMS_ITS | Encounter Summary ---
Author Organization [facility] Address [address] [place] [address] Care Team Providers Care Pile Driving Supervisor Name Role Phone Unavailable Primary Care Provider Mckenna e Encounter Details Date Type Department Care Team (Late st Contact Info) Description 10/24/2001 Outpatient Historical [facility] Otis Huddleston MD [address] [facility] [address] [address] ROUT POSTPART FOLLOW-UP (Primary Dx) Social History Tobacco Use Types Packs/Day Years Used Date Smoking Tobacco: Never Assessed Comments Unknown Sex and Gender Information Value Date Recorded Sex Assigned at Female 07/15/2024 12:25 PM CDT Legal Sex Female 3:58 AM DIAMOND GRADER Gender Identity Female 07/15/2024 12:25 PM CDT Sexual Orientation Straight 07/15/2024 12 :25 PM CDT documented as of this encounter Plan of Treatment Not on file documented as of this encounter Visit Diagnoses Diagnosis Routine follow-up- Primary documented in this encounter
--- OUTSIDE RECORDS SUMMARY | 2025-03-30 19:43 | XMS_ITS | Encounter Summary ---
Author Organization [facility] Address [address] [place] [address] Care Team Providers Care Lunchroom Supervisor Name Role Phone Unavailable Primary Care Provider Mckenna e Encounter Details Date Type Department Care Team (Late st Contact Info) Description 08/20/2001 Outpatient Historical [facility] Alf Blanco SUPERVIS OTHER NORMAL PREG (Primary Dx) Social History Tobacco Use Types Packs/Day Years Used Date Smoking Tobacco: Never Assessed Comments Unknown Sex and Gender Information Value Date Recorded Sex Assigned at Female 07/15/2024 12:25 PM CDT Legal Sex Female 3:58 AM ANODE ADJUSTER Gender Identity Female 07/15/2024 12:25 PM CDT Sexual Orientation Straight 07/15/2024 12 :25 PM CDT documented as of this encounter Plan of Treatment Not on file documented as of this encounter Visit Diagnoses Diagnosis Supervision of other normal - Primary documented in this encounter
--- OUTSIDE RECORDS SUMMARY | 2025-03-30 19:43 | XMS_ITS | Encounter Summary ---
Author Organization [facility] Address [address] [place] [address] Care Team Providers Care Asw/Asuw Tactical Air Controller Name Role Phone Unavailable Primary Care Provider Mckenna e Encounter Details Date Type Department Care Team (Late st Contact Info) Description 08/08/2001 Outpatient Historical [facility] [address] [place] [phone] Alf Blanco Social History Tobacco Use Types Packs/Day Years Used Date Smoking Tobacco: Never Assessed Comments Unknown Sex and Gender Information Value Date Recorded Sex Assigned at Female 07/15/2024 12:25 PM CDT Legal Sex Female 3:58 AM MOLDING PLASTERER Gender Identity Female 07/15/2024 12:25 PM CDT Sexual Orientation Straight 07/15/2024 12 :25 PM CDT documented as of this encounter Plan of Treatment Not on file documented as of this encounter Visit Diagnoses Not on filedocumented in this encounter
--- OUTSIDE RECORDS SUMMARY | 2025-03-30 19:43 | XMS_ITS | Encounter Summary ---
Author Organization [facility] Address [address] [place] [address] Care Team Providers Care Business Management Analyst Name Role Phone Unavailable Primary Care Provider Mckenna e Encounter Details Date Type Department Care Team (Latest Contact Info) Description 09/08/2001 Outpatient Historical HIS PATIENT IN A BED Bonifacio, Donna Hua, Alf Arshad MD [address] [facility] [address] [place] [phone] PREG COMPL NEC-ANTEPART (Primary Dx) Social History Tobacco Use Types Packs/Day Years Used Date Smoking Tobacco: Never Assessed Comments Unknown Sex and Gender Information Value Date Recorded Sex Assigned at Female 07/15/2024 12:25 PM CDT Legal Sex Female 3:58 AM CHARTERED WEALTH MANAGER Gender Identity Female 07/15/2024 12:25 PM CDT Sexual Orientation Straight 07/15/2024 12 :25 PM CDT documented as of this encounter Plan of Treatment Not on file documented as of this encounter Visit Diagnoses Diagnosis Other specified complication, antepartum(646.83)- Primary Other specified complication, antepartum documented in this encounter
--- OUTSIDE RECORDS SUMMARY | 2025-03-30 19:43 | XMS_ITS | Encounter Summary ---
Author Organization [facility] Address [address] [place] [address] Care Team Providers Care Lining Scrubber Name Role Phone Unavailable Primary Care Provider Mckenna e Encounter Details Date Type Department Care Team (Latest Contact Info) Description 06/13/2001 Outpatient Historical [facility] Atif Sanchez Supervision of other normal (Primary Dx) Social History Tobacco Use Types Packs/Day Years Used Date Smoking Tobacco: Never Assessed Comments Unknown Sex and Gender Information Value Date Recorded Sex Assigned at Female 07/15/2024 12:25 PM CDT Legal Sex Female 3:58 AM RANGE MASTER Gender Identity Female 07/15/2024 12:25 PM CDT Sexual Orientation Straight 07/15/2024 12 :25 PM CDT documented as of this encounter Plan of Treatment Not on file documented as of this encounter Visit Diagnoses Diagnosis Supervision of other normal - Primary documented in this encounter
--- OUTSIDE RECORDS SUMMARY | 2025-03-30 19:43 | XMS_ITS | Encounter Summary ---
Author Organization [facility] Address [address] [place] [address] Care Team Providers Care Diesel Mechanic Name Role Phone Unavailable Primary Care Provider Mckenna e Encounter Details Date Type Department Care Team (Late st Contact Info) Description 10/24/2001 Outpatient Historical [facility] [address] [place] [address] Otis Huddleston MD [address] [place] [address] Social History Tobacco Use Types Packs/Day Years Used Date Smoking Tobacco: Never Assessed Comments Unknown Sex and Gender Information Value Date Recorded Sex Assigned at Female 07/15/2024 12:25 PM CDT Legal Sex Female 3:58 AM SUPERVISOR PHOSPHORUS PROCESSING Gender Identity Female 07/15/2024 12:25 PM CDT Sexual Orientation Straight 07/15/2024 12 :25 PM CDT documented as of this encounter Plan of Treatment Not on file documented as of this encounter Visit Diagnoses Not on filedocumented in this encounter
--- OUTSIDE RECORDS SUMMARY | 2025-03-30 19:43 | XMS_ITS | Encounter Summary ---
Author Organization [facility] Address [address] [place] [address] Care Team Providers Care Nursing Faculty Name Role Phone Unavailable Primary Care Provider Mckenna e Encounter Details Date Type Department Care Team (Latest Contact Info) Description 08/04/2001 Outpatient Historical HIS PATIENT IN A BED Bonifacio, Donna ALVAERS JOVAN LABOR-ANTEPART (Primary Dx) Social History Tobacco Use Types Packs/Day Years Used Date Smoking Tobacco: Never Assessed Comments Unknown Sex and Gender Information Value Date Recorded Sex Assigned at Female 07/15/2024 12:25 PM CDT Legal Sex Female 3:58 AM COUNCILPERSON Gender Identity Female 07/15/2024 12:25 PM CDT Sexual Orientation Straight 07/15/2024 12 :25 PM CDT documented as of this encounter Plan of Treatment Not on file documented as of this encounter Visit Diagnoses Diagnosis Threatened premature labor, antepartum(644.03)- Primary Threatened premature labor, antepartum documented in this encounter
--- OUTSIDE RECORDS SUMMARY | 2025-03-30 19:43 | XMS_ITS | Encounter Summary ---
Author Organization [facility] Address [address] [place] [address] Care Team Providers Care Candy Depositing Machine Operator Name Role Phone Unavailable Primary Care Provider Mckenna e Encounter Details Date Type Department Care Team (Latest Contact Info) Description 07/12/2001 Outpatient Historical [facility] PATIENT IN A BED BonifacioDonna Other specified complication, antepartum(646.83) (Primary Dx) Social History Tobacco Use Types Packs/Day Years Used Date Smoking Tobacco: Never Assessed Comments Unknown Sex and Gender Information Value Date Recorded Sex Assigned at Female 07/15/2024 12:25 PM CDT Legal Sex Female 3:58 AM ELECTRICAL APPLIANCE SERVICER Gender Identity Female 07/15/2024 12:25 PM CDT Sexual Orientation Straight 07/15/2024 12 :25 PM CDT documented as of this encounter Plan of Treatment Not on file documented as of this encounter Visit Diagnoses Diagnosis Other specified complication, antepartum(646.83)- Primary Other specified complication, antepartum documented in this encounter
--- OUTSIDE RECORDS SUMMARY | 2025-03-30 19:43 | XMS_ITS | Encounter Summary ---
Author Organization [facility] Address [address] [place] [address] Care Team Providers Care Drop Clipper Name Role Phone Unavailable Primary Care Provider Mckenna e Encounter Details Date Type Department Care Team (Latest Contact Info) Description 08/11/2001 Outpatient Historical HIS PATIENT IN A BED Alf Hua MD [address] 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
--- OUTSIDE RECORDS SUMMARY | 2025-03-30 19:43 | XMS_ITS | Encounter Summary ---
Author Organization [employer] Address [address] [place] [address] Care Team Providers Care Trolley Operator Name Role Phone Unavailable Primary Care Provider Mckenna e Encounter Details Date Type Department Care Team (Latest Contact Info) Description 09/28/2001 Outpatient Historical [facility] PATIENT IN A BED Kvng Ruffin MD NO ADDRESS ON FILE PREG COMPL NEC-ANTEPART (Primary Dx) Social History Tobacco Use Types Packs/Day Years Used Date Smoking Tobacco: Never Assessed Comments Unknown Sex and Gender Information Value Date Recorded Sex Assigned at Female 07/15/2024 12:25 PM CDT Legal Sex Female 3:58 AM VP RESEARCH Gender Identity Female 07/15/2024 12:25 PM CDT Sexual Orientation Straight 07/15/2024 12 :25 PM CDT documented as of this encounter Plan of Treatment Not on file documented as of this encounter Visit Diagnoses Diagnosis Other specified complication, antepartum(646.83)- Primary Other specified complication, antepartum documented in this encounter
--- OUTSIDE RECORDS SUMMARY | 2025-03-30 19:43 | XMS_ITS | Encounter Summary ---
Author Organization [facility] Address [address] [place] [address] Care Team Providers Care Head Usher Name Role Phone Unavailable Primary Care Provider Mckenna e Encounter Details Date Type Department Care Team (Late st Contact Info) Description 08/01/2001 Outpatient Historical [facility] [address] [place] [address] Otis Huddleston MD [address] [place] [address] Social History Tobacco Use Types Packs/Day Years Used Date Smoking Tobacco: Never Assessed Comments Unknown Sex and Gender Information Value Date Recorded Sex Assigned at Female 07/15/2024 12:25 PM CDT Legal Sex Female 3:58 AM CASUAL SHOE INSPECTOR Gender Identity Female 07/15/2024 12:25 PM CDT Sexual Orientation Straight 07/15/2024 12 :25 PM CDT documented as of this encounter Plan of Treatment Not on file documented as of this encounter Visit Diagnoses Not on filedocumented in this encounter
--- OUTSIDE RECORDS SUMMARY | 2025-03-30 19:43 | XMS_ITS | Encounter Summary ---
Author Organization [facility] Address [address] [place] [address] Care Team Providers Care Court Administrator Name Role Phone Isabelle Velázquez MD Unavailable [phone] Radha Espinoza PA-C Primary Care Provider [phone] Encounter Details Date Type Department Care Team (Late st Contact Info) Description 12/04/2021 Ophth Exam [facility] [address] [place] [address] Tom Garcia MD [facility] [address] [address] Social History Tobacco Use Types Packs/Day Years [...] on file 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 Never 12/04/2021 2:00 PM Tiesha Friend RN Q2: How many drinks containi ng alcohol do you have on a typical day when you are drinking? 1 or 2 12/04/2021 2:00 PM Tiesha Friend RN Q3: How often do you have si x or more drinks on one occasion? Never 12/04/2021 2:00 PM Tiesha Chang RN * Is person deaf or have serious [...] on filedocumented in this encounter Care Teams Court Administrator Relationship Specialty Start Date End Date Isabelle Velázquez MD [address] [place] [id number] PCP - OBGYN 05/13/08 Radha Espinoza PA-C [address] [place] [address] [place] [phone] PCP - General Physician Triple Valve Tester 05/22/22 documented as of this encounter
--- OUTSIDE RECORDS SUMMARY | 2025-03-30 19:43 | XMS_ITS | Encounter Summary ---
Author Organization [facility] Address [address] [place] [address] Care Team Providers Care Software Development Advisor Name Role Phone Unavailable Primary Care Provider Mckenna e Encounter Details Date Type Department Care Team (Latest Contact Info) Description 08/18/2001 Outpatient Historical [facility] PATIENT IN A BED Luz Nunez MD [address] [place] [address] THRT JOVAN LABOR-ANTEPART (Primary Dx) Social History Tobacco Use Types Packs/Day Years Used Date Smoking Tobacco: Never Assessed Comments Unknown Sex and Gender Information Value Date Recorded Sex Assigned at Female 07/15/2024 12:25 PM CDT Legal Sex Female 3:58 AM FIELD IRONWORKER Gender Identity Female 07/15/2024 12:25 PM CDT Sexual Orientation Straight 07/15/2024 12 :25 PM CDT documented as of this encounter Plan of Treatment Not on file documented as of this encounter Visit Diagnoses Diagnosis Threatened premature labor, antepartum(644.03)- Primary Threatened premature labor, antepartum documented in this encounter
--- OUTSIDE RECORDS SUMMARY | 2025-03-30 19:43 | XMS_ITS | Patient Health Record ---
Author Organization [facility] Address [address] [place] [address] [place] [address] Care Team Providers Care Environmental Monitoring Technician Name Role Phone Abdulkadir WALTER, [employer] [facility] [employer] [facility] Primary Care Provider Birda Eric Lora Unavailable [phone] Reason For Referral No Information Medications Medication SIG (Take, Route, Frequency, Duration) Notes Start Date End Date Status Na Sulfate-K Sulfate-Mg Sulf 17.5-3.13-1.6 GM/177ML ML Orally Twice a day,Follow Physician Instructions. for 1 days 06/26/2024 Active Encounters Encounter Location Date Provider Diagnosis [facility], [place], [facility], [address] [place] [address] 06/26/2024 Eric Perdue [facility], [place], [address] [place] [address] 06/26/2024 Eric Perdue [facility], [address] [place] [address] 06/27/2024 Eric Perdue Plan Of Treatment No Information Insurance Providers Payer Name Payer Address Payer Phone Subscriber Number Group Number Insured Name Patient Relationship to Insured Coverage Start Date Coverage End Date [facility] [address] [place] [id number] Saira Bashir Self - patient is the insured
--- OUTSIDE RECORDS SUMMARY | 2025-03-30 19:43 | XMS_ITS | Encounter Summary ---
Author Organization [facility] Address [address] [place] [address] Care Team Providers Care Aniline Press Worker Name Role Phone Unavailable Primary Care Provider Mckenna e Encounter Details Date Type Department Care Team (Late st Contact Info) Description 08/08/2001 Outpatient Historical [facility] Alf Blanco SUPERVIS OTHER NORMAL PREG (Primary Dx) Social History Tobacco Use Types Packs/Day Years Used Date Smoking Tobacco: Never Assessed Comments Unknown Sex and Gender Information Value Date Recorded Sex Assigned at Female 07/15/2024 12:25 PM CDT Legal Sex Female 3:58 AM SWITCHBOARD TROUBLESHOOTER Gender Identity Female 07/15/2024 12:25 PM CDT Sexual Orientation Straight 07/15/2024 12 :25 PM CDT documented as of this encounter Plan of Treatment Not on file documented as of this encounter Visit Diagnoses Diagnosis Supervision of other normal - Primary documented in this encounter
--- OUTSIDE RECORDS SUMMARY | 2025-03-30 19:43 | XMS_ITS | Encounter Summary ---
Author Organization [facility] Address [address] [place] [address] Care Team Providers Care Grocery Supervisor Name Role Phone Unavailable Primary Care Provider Mckenna e Encounter Details Date Type Department Care Team (Latest Contact Info) Description 07/03/2001 Outpatient Historical [facility] PATIENT IN A BED BonifacioDonna Other current maternal conditions classifiable elsewhere, antepartum (Primary Dx) Social History Tobacco Use Types Packs/Day Years Used Date Smoking Tobacco: Never Assessed Comments Unknown Sex and Gender Information Value Date Recorded Sex Assigned at Female 07/15/2024 12:25 PM CDT Legal Sex Female 3:58 AM RN DELIVERY Gender Identity Female 07/15/2024 12:25 PM CDT Sexual Orientation Straight 07/15/2024 12 :25 PM CDT documented as of this encounter Plan of Treatment Not on file documented as of this encounter Visit Diagnoses Diagnosis Other current maternal conditions classifiable elsewhere, antepartum- Primary documented in this encounter
--- OUTSIDE RECORDS SUMMARY | 2025-03-30 19:43 | XMS_ITS | Encounter Summary ---
Author Organization [email or web address] Address [address] [place] [address] Care Team Providers Care High School Band Director Name Role Phone Unavailable Primary Care Provider Mckenna e Encounter Details Date Type Department Care Team (Latest Contact Info) Description 10/07/2001 Inpatient Historical [facility] PATIENT IN A BED Bonifacio, Ramos Ferreira MILD/NOS PREECLAMP-DELIVERED (Primary Dx) Social History Tobacco Use Types Packs/Day Years Used Date Smoking Tobacco: Never Assessed Comments Unknown Sex and Gender Information Value Date Recorded Sex Assigned at Female 07/15/2024 12:25 PM CDT Legal Sex Female 3:58 AM DIGITAL OPERATIONS ANALYST Gender Identity Female 07/15/2024 12:25 PM CDT Sexual Orientation Straight 07/15/2024 12 :25 PM CDT documented as of this encounter Plan of Treatment Not on file documented as of this encounter Visit Diagnoses Diagnosis Mild or unspecified pre-eclampsia, with delivery- Primary documented in this encounter
--- OUTSIDE RECORDS SUMMARY | 2025-03-30 19:43 | XMS_ITS | Encounter Summary ---
Author Organization [facility] Address [address] [place] [address] Care Team Providers Care Billboard Poster Helper Name Role Phone Unavailable Primary Care Provider Mckenna e Encounter Details Date Type Department Care Team (Latest Contact Info) Description 08/08/2001 Outpatient Historical [facility] Atif Sanchez POOR GRTH-ANTEPART (Primary Dx) Social History Tobacco Use Types Packs/Day Years Used Date Smoking Tobacco: Never Assessed Comments Unknown Sex and Gender Information Value Date Recorded Sex Assigned at Female 07/15/2024 12:25 PM CDT Legal Sex Female 3:58 AM COMPUTER PROCESSING SCHEDULER Gender Identity Female 07/15/2024 12:25 PM CDT Sexual Orientation Straight 07/15/2024 12 :25 PM CDT documented as of this encounter Plan of Treatment Not on file documented as of this encounter Visit Diagnoses Diagnosis Poor growth, affecting management of mother, antepartum condition or complication- Primary documented in this encounter
--- OUTSIDE RECORDS SUMMARY | 2025-03-30 19:43 | XMS_ITS | Encounter Summary ---
Author Organization [facility] Address [address] [place] [address] Care Team Providers Care Track Template Maker Name Role Phone Unavailable Primary Care Provider Mckenna e Encounter Details Date Type Department Care Team (Late st Contact Info) Description 08/29/2001 Outpatient Historical [facility] [address] [place] [phone] Alf Blanco Social History Tobacco Use Types Packs/Day Years Used Date Smoking Tobacco: Never Assessed Comments Unknown Sex and Gender Information Value Date Recorded Sex Assigned at Female 07/15/2024 12:25 PM CDT Legal Sex Female 3:58 AM APPRAISER OIL AND WATER Gender Identity Female 07/15/2024 12:25 PM CDT Sexual Orientation Straight 07/15/2024 12 :25 PM CDT documented as of this encounter Plan of Treatment Not on file documented as of this encounter Visit Diagnoses Not on filedocumented in this encounter
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
--- OUTSIDE RECORDS SUMMARY | 2025-03-30 19:43 | XMS_ITS | Encounter Summary ---
Author Organization [facility] Address 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
--- OUTSIDE RECORDS SUMMARY | 2025-03-30 19:43 | XMS_ITS | Encounter Summary ---
Author Organization [facility] Address 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
--- OUTSIDE RECORDS SUMMARY | 2025-03-30 19:43 | XMS_ITS | Encounter Summary ---
Author Organization [facility] Address 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
--- OUTSIDE RECORDS SUMMARY | 2025-03-30 19:43 | XMS_ITS | Encounter Summary ---
Author Organization [facility] Address [address] [place] [address] Care Team Providers Care Operations Superintendent Name Role Phone Unavailable Primary Care Provider Mckenna e Encounter Details Date Type Department Care Team (Late st Contact Info) Description 07/18/2001 Outpatient Historical [facility] Alf Blanco Supervision of other normal (Primary Dx) Social History Tobacco Use Types Packs/Day Years Used Date Smoking Tobacco: Never Assessed Comments Unknown Sex and Gender Information Value Date Recorded Sex Assigned at Female 07/15/2024 12:25 PM CDT Legal Sex Female 3:58 AM CODING SPECIALIST Gender Identity Female 07/15/2024 12:25 PM CDT Sexual Orientation Straight 07/15/2024 12 :25 PM CDT documented as of this encounter Plan of Treatment Not on file documented as of this encounter Visit Diagnoses Diagnosis Supervision of other normal - Primary documented in this encounter
--- OUTSIDE RECORDS SUMMARY | 2025-03-30 19:43 | XMS_ITS | Encounter Summary ---
Author Organization [facility] Address [address] [place] [address] Care Team Providers Care School Coordinator Name Role Phone Unavailable Primary Care Provider Mckenna e Encounter Details Date Type Department Care Team (Latest Contact Info) Description 08/24/2001 Outpatient Historical [facility] PATIENT IN A BED Kvng Ruffin MD NO ADDRESS ON FILE DECREASED MOVMT-ANTEPARTUM (Primary Dx) Social History Tobacco Use Types Packs/Day Years Used Date Smoking Tobacco: Never Assessed Comments Unknown Sex and Gender Information Value Date Recorded Sex Assigned at Female 07/15/2024 12:25 PM CDT Legal Sex Female 3:58 AM CIVIL ENGINEERING PROFESSIONAL Gender Identity Female 07/15/2024 12:25 PM CDT Sexual Orientation Straight 07/15/2024 12 :25 PM CDT documented as of this encounter Plan of Treatment Not on file documented as of this encounter Visit Diagnoses Diagnosis Decreased movements, affecting management of mother, antepartum- Primary documented in this encounter
--- OUTSIDE RECORDS SUMMARY | 2025-03-30 19:43 | XMS_ITS | Encounter Summary ---
Author Organization [facility] Address 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
--- OUTSIDE RECORDS SUMMARY | 2025-03-30 19:43 | XMS_ITS | Encounter Summary ---
Author Organization [facility] Address [address] [place] [address] Care Team Providers Care Lead Sharepoint Developer Name Role Phone Unavailable Primary Care Provider Mckenna e Encounter Details Date Type Department Care Team (Latest Contact Info) Description 09/01/2001 Outpatient Historical [facility] PATIENT IN A BED Alf Hua MD [address] [facility] [address] [place] [phone] PREG COMPL NEC-ANTEPART (Primary Dx) Social History Tobacco Use Types Packs/Day Years Used Date Smoking Tobacco: Never Assessed Comments Unknown Sex and Gender Information Value Date Recorded Sex Assigned at Female 07/15/2024 12:25 PM CDT Legal Sex Female 3:58 AM GUILLOTINE TRIMMER Gender Identity Female 07/15/2024 12:25 PM CDT Sexual Orientation Straight 07/15/2024 12 :25 PM CDT documented as of this encounter Plan of Treatment Not on file documented as of this encounter Visit Diagnoses Diagnosis Other specified complication, antepartum(646.83)- Primary Other specified complication, antepartum documented in this encounter
--- OUTSIDE RECORDS SUMMARY | 2025-03-30 19:43 | XMS_ITS | Encounter Summary ---
Author Organization [facility] Address [address] [place] [address] Care Team Providers Care Revolving Field Assembler Name Role Phone Unavailable Primary Care Provider Mckenna e Encounter Details Date Type Department Care Team (Latest Contact Info) Description 08/20/2001 Outpatient Historical HIS PATIENT IN A BED Kvng Ruffin MD NO ADDRESS ON FILE Charla Pa MD NO ADDRESS ON FILE DECREASED MOVMT-ANTEPARTUM (Primary Dx) Social History Tobacco Use Types Packs/Day Years Used Date Smoking Tobacco: Never Assessed Comments Unknown Sex and Gender Information Value Date Recorded Sex Assigned at Female 07/15/2024 12:25 PM CDT Legal Sex Female 3:58 AM AUTOMATION CONTROLS SPECIALIST Gender Identity Female 07/15/2024 12:25 PM CDT Sexual Orientation Straight 07/15/2024 12 :25 PM CDT documented as of this encounter Plan of Treatment Not on file documented as of this encounter Visit Diagnoses Diagnosis Decreased movements, affecting management of mother, antepartum- Primary documented in this encounter
--- OUTSIDE RECORDS SUMMARY | 2025-03-30 19:43 | XMS_ITS | Encounter Summary ---
Author Organization [facility] Address 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
--- OUTSIDE RECORDS SUMMARY | 2025-03-30 19:43 | XMS_ITS | Encounter Summary ---
Author Organization [facility] Address [address] [place] [address] Care Team Providers Care Toucher Up Name Role Phone Unavailable Primary Care Provider Mckenna e Encounter Details Date Type Department Care Team (Late st Contact Info) Description 09/18/2001 Outpatient Historical [facility] [address] [place] [phone] Alf Blanco Social History Tobacco Use Types Packs/Day Years Used Date Smoking Tobacco: Never Assessed Comments Unknown Sex and Gender Information Value Date Recorded Sex Assigned at Female 07/15/2024 12:25 PM CDT Legal Sex Female 3:58 AM CONCRETE ANALYST Gender Identity Female 07/15/2024 12:25 PM CDT Sexual Orientation Straight 07/15/2024 12 :25 PM CDT documented as of this encounter Plan of Treatment Not on file documented as of this encounter Visit Diagnoses Not on filedocumented in this encounter
--- OUTSIDE RECORDS SUMMARY | 2025-03-30 19:43 | XMS_ITS | Encounter Summary ---
Author Organization [facility] Address [address] [place] [address] Care Team Providers Care Clerical Clerk Name Role Phone Unavailable Primary Care Provider Mckenna e Encounter Details Date Type Department Care Team (Late st Contact Info) Description 09/18/2001 Outpatient Historical [facility] Alf Blanco SUPERVIS OTHER NORMAL PREG (Primary Dx) Social History Tobacco Use Types Packs/Day Years Used Date Smoking Tobacco: Never Assessed Comments Unknown Sex and Gender Information Value Date Recorded Sex Assigned at Female 07/15/2024 12:25 PM CDT Legal Sex Female 3:58 AM MEDICAL ACCOUNTANT Gender Identity Female 07/15/2024 12:25 PM CDT Sexual Orientation Straight 07/15/2024 12 :25 PM CDT documented as of this encounter Plan of Treatment Not on file documented as of this encounter Visit Diagnoses Diagnosis Supervision of other normal - Primary documented in this encounter
--- OUTSIDE RECORDS SUMMARY | 2025-03-30 19:43 | XMS_ITS | Encounter Summary ---
Author Organization [facility] Address [address] [place] [address] Care Team Providers Care Welder Shielded Metal Arc Name Role Phone Unavailable Primary Care Provider Mckenna e Encounter Details Date Type Department Care Team (Latest Contact Info) Description 10/06/2001 Outpatient Historical HIS PATIENT IN A BED Bonifacio, Donna PREG COMPL NEC-ANTEPART (Primary Dx) Social History Tobacco Use Types Packs/Day Years Used Date Smoking Tobacco: Never Assessed Comments Unknown Sex and Gender Information Value Date Recorded Sex Assigned at Female 07/15/2024 12:25 PM CDT Legal Sex Female 3:58 AM CHEMICAL LAB SUPERVISOR Gender Identity Female 07/15/2024 12:25 PM CDT Sexual Orientation Straight 07/15/2024 12 :25 PM CDT documented as of this encounter Plan of Treatment Not on file documented as of this encounter Visit Diagnoses Diagnosis Other specified complication, antepartum(646.83)- Primary Other specified complication, antepartum documented in this encounter
--- OUTSIDE RECORDS SUMMARY | 2025-03-30 19:43 | XMS_ITS | Encounter Summary ---
Author Organization [facility] Address [address] [place] [address] Care Team Providers Care Director Of Optimization Name Role Phone Unavailable Primary Care Provider Mckenna e Encounter Details Date Type Department Care Team (Late st Contact Info) Description 07/18/2001 Outpatient Historical [facility] [address] [place] [id number] Alf Blanco Social History Tobacco Use Types Packs/Day Years Used Date Smoking Tobacco: Never Assessed Comments Unknown Sex and Gender Information Value Date Recorded Sex Assigned at Female 07/15/2024 12:25 PM CDT Legal Sex Female 3:58 AM VOCAL ARTIST Gender Identity Female 07/15/2024 12:25 PM CDT Sexual Orientation Straight 07/15/2024 12 :25 PM CDT documented as of this encounter Plan of Treatment Not on file documented as of this encounter Visit Diagnoses Not on filedocumented in this encounter
--- OUTSIDE RECORDS SUMMARY | 2025-03-30 19:43 | XMS_ITS | Encounter Summary ---
Author Organization [facility] Address [address] [place] [address] Care Team Providers Care Scene And Lighting Design Lecturer Name Role Phone Unavailable Primary Care Provider Mckenna e Encounter Details Date Type Department Care Team (Late st Contact Info) Description 08/29/2001 Outpatient Historical [facility] Alf Blanco SUPERVIS OTHER NORMAL PREG (Primary Dx) Social History Tobacco Use Types Packs/Day Years Used Date Smoking Tobacco: Never Assessed Comments Unknown Sex and Gender Information Value Date Recorded Sex Assigned at Female 07/15/2024 12:25 PM CDT Legal Sex Female 3:58 AM TRANSITION ADVISOR Gender Identity Female 07/15/2024 12:25 PM CDT Sexual Orientation Straight 07/15/2024 12 :25 PM CDT documented as of this encounter Plan of Treatment Not on file documented as of this encounter Visit Diagnoses Diagnosis Supervision of other normal - Primary documented in this encounter
--- OUTSIDE RECORDS SUMMARY | 2025-03-30 19:43 | XMS_ITS | Encounter Summary ---
Author Organization [facility] Address 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
[2025-03-30 23:26] VITALS: RESP 16; O2SAT 99
[2025-03-30 23:27] VITALS: BP 139/88; PULSE 88; RESP 16; O2SAT 99
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
--- OUTSIDE RECORDS SUMMARY | 2025-03-31 00:05 | XMS_ITS | Encounter Summary ---
Author Organization [facility] Address 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
--- OUTSIDE RECORDS SUMMARY | 2025-03-31 00:05 | XMS_ITS | Encounter Summary ---
Author Organization [facility] Address [address] [place] [address] Care Team Providers Care Supervisor Shop Name Role Phone Unavailable Primary Care Provider [...] PM CDT Legal Sex Female 3:58 AM SEMICONDUCTOR ASSEMBLER Gender Identity Female 07/15/2024 12:25 PM CDT Sexual Orientation Straight 07/15/2024 12 :25 PM CDT documented as of this encounter Plan of Treatment Not on file documented as of this encounter Visit Diagnoses Diagnosis Supervision of other normal - Primary documented in this encounter
--- OUTSIDE RECORDS SUMMARY | 2025-03-31 00:05 | XMS_ITS | Encounter Summary ---
Author Organization [facility] Address 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
--- OUTSIDE RECORDS SUMMARY | 2025-03-31 00:05 | XMS_ITS | Encounter Summary ---
Author Organization [facility] Address 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
--- OUTSIDE RECORDS SUMMARY | 2025-03-31 00:05 | XMS_ITS | Encounter Summary ---
Author Organization [facility] Address [address] [place] [address] Care Team Providers Care Psychologist Social Name Role Phone Unavailable Primary Care Provider [...] PM CDT Legal Sex Female 3:58 AM PERIOPERATIVE TECH Gender Identity Female 07/15/2024 12:25 PM CDT Sexual Orientation Straight 07/15/2024 12 :25 PM CDT documented as of this encounter Plan of Treatment Not on file documented as of this encounter Visit Diagnoses Diagnosis Supervision of other normal - Primary documented in this encounter
--- OUTSIDE RECORDS SUMMARY | 2025-03-31 00:05 | XMS_ITS | Encounter Summary ---
Author Organization [facility] Address [address] [place] [address] Care Team Providers Care Press Operator Automatic Name Role Phone Unavailable Primary Care Provider Mckenna e Encounter Details Date Type Department Care Team (Late st Contact Info) Description 05/02/2001 Outpatient Historical [facility] Otis Huddleston MD [address] [facility] [address] [address] Supervision of other normal (Primary Dx) Social History Tobacco Use Types Packs/Day Years Used Date Smoking Tobacco: Never Assessed Comments Unknown Sex and Gender Information Value Date Recorded Sex Assigned at Female 07/15/2024 12:25 PM CDT Legal Sex Female 3:58 AM FIRST MATE Gender Identity Female 07/15/2024 12:25 PM CDT Sexual Orientation Straight 07/15/2024 12 :25 PM CDT documented as of this encounter Plan of Treatment Not on file documented as of this encounter Visit Diagnoses Diagnosis Supervision of other normal - Primary documented in this encounter
--- OUTSIDE RECORDS SUMMARY | 2025-03-31 00:05 | XMS_ITS | Encounter Summary ---
Author Organization [facility] Address [address] [place] [address] Care Team Providers Care Director Of Housing And Energy Services Name Role Phone Unavailable Primary Care Provider Mckenna e Encounter Details Date Type Department Care Team (Late st Contact Info) Description 03/04/2004 Outpatient Historical [facility] Maternal and Ground [facility] [address] [place] [address] Luz Nunez MD [address] [place] [address] Social History Tobacco Use Types Packs/Day Years Used Date Smoking Tobacco: Never Assessed Comments Unknown Sex and Gender Information Value Date Recorded Sex Assigned at Female 07/15/2024 12:25 PM CDT 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
--- OUTSIDE RECORDS SUMMARY | 2025-03-31 00:05 | XMS_ITS | Encounter Summary ---
Author Organization [facility] Address 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
--- OUTSIDE RECORDS SUMMARY | 2025-03-31 00:05 | XMS_ITS | Encounter Summary ---
Author Organization [facility] Address [address] [place] [address] Care Team Providers Care Senior Java Data Architect Name Role Phone Isabelle Velázquez MD Unavailable [phone] Radha Espinoza PA-C Primary Care Provider [phone] Reason for Visit * Reason Onset Date Comments MEDICATION REFILL 06/19/2022 Encounter Details Date Type Department Care Team (Late st Contact Info) Description 06/19/2022 Refill [facility] [address] [place] [address], [facility] [place] [address] Benjamin James MD [address] [place] [address] [place] [address] MEDICATION REFILL Social History Tobacco [...] on file Legal Sex Female 5:19 AM COGNOS TM1 DEVELOPER Gender Identity Not on file Sexual Orientation [...] on filedocumented in this encounter Care Teams Senior Java Data Architect Relationship Specialty Start Date End Date Isabelle Velázquez MD [address] [place] [id number] PCP - OBGYN 05/13/08 Radha Espinoza PA-C [address] [place] [address] PCP - General Physician Collection Support Specialist 05/22/22 documented as of this encounter
--- OUTSIDE RECORDS SUMMARY | 2025-03-31 00:05 | XMS_ITS | Encounter Summary ---
Author Organization [facility] Address [address] [place] [address] Care Team Providers Care Erp Specialist Name Role Phone Unavailable Primary Care Provider [...] PM CDT Legal Sex Female 3:58 AM TAX COMPLIANCE MANAGER Gender Identity Female 07/15/2024 12:25 PM CDT Sexual Orientation Straight 07/15/2024 12 :25 PM CDT documented as of this encounter Plan of Treatment Not on file documented as of this encounter Visit Diagnoses Diagnosis Supervision of other normal - Primary documented in this encounter
--- OUTSIDE RECORDS SUMMARY | 2025-03-31 00:05 | XMS_ITS | Clinical Summary ---
Author Organization [facility] Address [address] [place] [address] Dr. [place], [place] [address] Phone Care Team Providers Care Radio Personality Name Role Phone Unavailable Primary Care Provider [...] PM CDT Legal Sex Female 3:58 AM BUNDLE BREAKER Gender Identity Female 07/15/2024 12:25 PM CDT [...] Muñoz MD - 07/31/2024 10:12 AM CDT [facility] Endoscopy [facility] Endoscopy Patient Name: Saira Arteaga Procedure Date: [...] Addenda: 0 Procedure Date: 07/31/2024 9:43:[address] [place] [address] Yisel Muñoz MD GI PROCEDURE ORDERABLES F inal Result from Last 3 Months or Most Recently Relevant to Health Maintenance Insurance INDIVIDUAL EXCHANGE [id number] [place] [address] Advance Directives For more information, please contact: [phone] * Full Code (Latest Code Status on File) Date Activated Date Inactivated Comments 07/31/2024 9:02 AM 07/31/2024 12:43 PM
--- OUTSIDE RECORDS SUMMARY | 2025-03-31 00:05 | XMS_ITS | Encounter Summary ---
Author Organization [facility] Address 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
--- OUTSIDE RECORDS SUMMARY | 2025-03-31 00:05 | XMS_ITS | Encounter Summary ---
Author Organization [facility] Address [address] [place] [address] Care Team Providers Care Microarray Analyst Name Role Phone Unavailable Primary Care Provider Mckenna e Encounter Details Date Type Department Care Team (Late st Contact Info) Description 12/10/2001 Outpatient Historical [facility] [address] [place] [phone] Alf Blanco Social History Tobacco Use Types Packs/Day Years Used Date Smoking Tobacco: Never Assessed Comments Unknown Sex and Gender Information Value Date Recorded Sex Assigned at Female 07/15/2024 12:25 PM CDT Legal Sex Female 3:58 AM CHILDREN'S NURSERY ASSISTANT Gender Identity Female 07/15/2024 12:25 PM CDT Sexual Orientation Straight 07/15/2024 12 :25 PM CDT documented as of this encounter Plan of Treatment Not on file documented as of this encounter Visit Diagnoses Not on filedocumented in this encounter
--- OUTSIDE RECORDS SUMMARY | 2025-03-31 00:05 | XMS_ITS | Encounter Summary ---
Author Organization [facility] Address [address] [place] [address] Care Team Providers Care Generation Engineering Technologist Name Role Phone Unavailable Primary Care Provider Mckenna e Encounter Details Date Type Department Care Team (Late st Contact Info) Description 05/30/2001 Outpatient Historical [facility] [address] [place] [phone] Alf Blanco Social History Tobacco Use Types Packs/Day Years Used Date Smoking Tobacco: Never Assessed Comments Unknown Sex and Gender Information Value Date Recorded Sex Assigned at Female 07/15/2024 12:25 PM CDT Legal Sex Female 3:58 AM APPLICATION CONSULTANT Gender Identity Female 07/15/2024 12:25 PM CDT Sexual Orientation Straight 07/15/2024 12 :25 PM CDT documented as of this encounter Plan of Treatment Not on file documented as of this encounter Visit Diagnoses Not on filedocumented in this encounter
--- OUTSIDE RECORDS SUMMARY | 2025-03-31 00:05 | XMS_ITS | Encounter Summary ---
Author Organization [facility] Address [address] [place] [address] Care Team Providers Care Director Of Diversity And Inclusion Name Role Phone Unavailable Primary Care Provider Mckenna e Encounter Details Date Type Department Care Team (Late st Contact Info) Description 04/04/2001 Outpatient Historical [facility] [address] [place] [address] Otis Huddleston MD [address] [place] [address] Social History Tobacco Use Types Packs/Day Years Used Date Smoking Tobacco: Never Assessed Comments Unknown Sex and Gender Information Value Date Recorded Sex Assigned at Female 07/15/2024 12:25 PM CDT 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
--- OUTSIDE RECORDS SUMMARY | 2025-03-31 00:05 | XMS_ITS | Encounter Summary ---
Author Organization [facility] Address [address] [place] [address] Care Team Providers Care Application Packager Name Role Phone Unavailable Primary Care Provider [...] CDT Legal Sex Female 3:58 AM CODING TECH Gender Identity Female 07/15/2024 12:25 PM CDT Sexual Orientation Straight 07/15/2024 12 :25 PM CDT documented as of this encounter Plan of Treatment Not on file documented as of this encounter Visit Diagnoses Diagnosis Decreased movements, affecting management of mother, antepartum- Primary documented in this encounter
--- OUTSIDE RECORDS SUMMARY | 2025-03-31 00:05 | XMS_ITS | Encounter Summary ---
Author Organization [facility] Address [address] [place] [address] Care Team Providers Care Computer Peripheral Equipment Operator Name Role Phone Isabelle Velázquez MD Unavailable [phone] Radha Espinoza PA-C Primary Care Provider [phone] Reason for Visit * Reason Onset Date Comments MEDICATION REFILL 06/13/2022 Encounter Details Date Type Department Care Team (Late st Contact Info) Description 06/13/2022 Refill [facility] [place] [address] Velma Pino MD [facility] [address] MEDICATION REFILL Social History Tobacco [...] on file Legal Sex Female 5:19 AM REGULAR SENIOR CARE PROVIDER Gender Identity Not on file Sexual Orientation [...] of Assessment Author No 12/04/2021 2:02 PM REGULAR SENIOR CARE PROVIDER Tiesha Camarena RN * Is person blind or have serious difficulty seeing? Answer Date of Assessment Author Yes 12/04/2021 2:02 PM REGULAR SENIOR CARE PROVIDER Tiesha Camarena RN * Does person have serious difficulty walking/climbing stairs? Answer Date of Assessment Author No 12/04/2021 2:02 PM REGULAR SENIOR CARE PROVIDER Tiesha Camarena RN * Does person have [...] on filedocumented in this encounter Care Teams Computer Peripheral Equipment Operator Relationship Specialty Start Date End Date Isabelle Velázquez MD [address] [place] [address] PCP - OBGYN 05/13/08 Radha Espinoza PA-C [address] [place] [address] [place] [address] PCP - General Physician Door Builder 05/22/22 documented as of this encounter
--- OUTSIDE RECORDS SUMMARY | 2025-03-31 00:05 | XMS_ITS | Encounter Summary ---
Author Organization [facility] Address [address] [place] [address] Care Team Providers Care Edge Baster Name Role Phone Unavailable Primary Care Provider [...] PM CDT Legal Sex Female 3:58 AM SYBASE DEVELOPER Gender Identity Female 07/15/2024 12:25 PM CDT Sexual Orientation Straight 07/15/2024 12 :25 PM CDT documented as of this encounter Plan of Treatment Not on file documented as of this encounter Visit Diagnoses Diagnosis Late vomiting of , antepartum- Primary documented in this encounter
--- OUTSIDE RECORDS SUMMARY | 2025-03-31 00:05 | XMS_ITS | Encounter Summary ---
Author Organization [facility] Address [address] [place] [address] Care Team Providers Care Service Desk Lead Name Role Phone Unavailable Primary Care Provider Mckenna e Encounter Details Date Type Department Care Team (Late st Contact Info) Description 08/01/2001 Outpatient Historical [facility] [address] [place] [address] Otis Huddleston MD [address] [place] [address] Social History Tobacco Use Types Packs/Day Years Used Date Smoking Tobacco: Never Assessed Comments Unknown Sex and Gender Information Value Date Recorded Sex Assigned at Female 07/15/2024 12:25 PM CDT Legal Sex Female 3:58 AM PEOPLESOFT HRMS DEVELOPER Gender Identity Female 07/15/2024 12:25 PM CDT Sexual Orientation Straight 07/15/2024 12 :25 PM CDT documented as of this encounter Plan of Treatment Not on file documented as of this encounter Visit Diagnoses Not on filedocumented in this encounter
--- OUTSIDE RECORDS SUMMARY | 2025-03-31 00:05 | XMS_ITS | Encounter Summary ---
Author Organization [facility] Address [address] [place] [address] Care Team Providers Care Printed Products Assembler Name Role Phone Unavailable Primary Care Provider Mckenna e Encounter Details Date Type Department Care Team (Late st Contact Info) Description 05/02/2001 Outpatient Historical [facility] [address] [place] [address] Otis Huddleston MD [address] [place] [address] Social History Tobacco Use Types Packs/Day Years Used Date Smoking Tobacco: Never Assessed Comments Unknown Sex and Gender Information Value Date Recorded Sex Assigned at Female 07/15/2024 12:25 PM CDT Legal Sex Female 3:58 AM SALES PROMOTION 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
--- OUTSIDE RECORDS SUMMARY | 2025-03-31 00:05 | XMS_ITS | Encounter Summary ---
Author Organization [facility] Address [address] [place] [address] Care Team Providers Care Orientation And Mobility Specialist Name Role Phone Unavailable Primary Care [...] PM CDT Legal Sex Female 3:58 AM TELETYPEWRITER OPERATOR Gender Identity Female 07/15/2024 12:25 PM CDT Sexual Orientation Straight 07/15/2024 12 :25 PM CDT documented as of this encounter Plan of Treatment Not on file documented as of this encounter Visit Diagnoses Diagnosis Other general counseling and advice for contraceptive management- Primary documented in this encounter
--- OUTSIDE RECORDS SUMMARY | 2025-03-31 00:05 | XMS_ITS | Encounter Summary ---
Author Organization [facility] Address [address] [place] [address] Care Team Providers Care Crop Farmers Name Role Phone Unavailable Primary Care Provider Mckenna e Encounter Details Date Type Department Care Team (Late st Contact Info) Description 07/18/2001 Outpatient Historical [facility] [address] [place] [phone] Alf Blanco Social History Tobacco Use Types Packs/Day Years Used Date Smoking Tobacco: Never Assessed Comments Unknown Sex and Gender Information Value Date Recorded Sex Assigned at Female 07/15/2024 12:25 PM CDT Legal Sex Female 3:58 AM RESTAURANT AND BAR MANAGER Gender Identity Female 07/15/2024 12:25 PM CDT Sexual Orientation Straight 07/15/2024 12 :25 PM CDT documented as of this encounter Plan of Treatment Not on file documented as of this encounter Visit Diagnoses Not on filedocumented in this encounter
--- OUTSIDE RECORDS SUMMARY | 2025-03-31 00:05 | XMS_ITS | Encounter Summary ---
Author Organization [facility] Address [address] [place] [address] Care Team Providers Care Carpet Jack Name Role Phone Unavailable Primary Care Provider Mckenna e Encounter Details Date Type Department Care Team (Late st Contact Info) Description 04/02/2001 Outpatient Historical [facility] [address] [place] [phone] Alf Blanco Social History Tobacco Use Types Packs/Day Years Used Date Smoking Tobacco: Never Assessed Comments Unknown Sex and Gender Information Value Date Recorded Sex Assigned at Female 07/15/2024 12:25 PM CDT Legal Sex Female 3:58 AM HANDS AND DIAL INSPECTOR Gender Identity Female 07/15/2024 12:25 PM CDT Sexual Orientation Straight 07/15/2024 12 :25 PM CDT documented as of this encounter Plan of Treatment Not on file documented as of this encounter Visit Diagnoses Not on filedocumented in this encounter
--- OUTSIDE RECORDS SUMMARY | 2025-03-31 00:05 | XMS_ITS | Encounter Summary ---
Author Organization [facility] Address [address] [place] [address] Care Team Providers Care Metal Roaster Name Role Phone Unavailable Primary Care Provider [...] PM CDT Legal Sex Female 3:58 AM HELIX COIL WINDER Gender Identity Female 07/15/2024 12:25 PM CDT Sexual Orientation Straight 07/15/2024 12 :25 PM CDT documented as of this encounter Plan of Treatment Not on file documented as of this encounter Visit Diagnoses Diagnosis Other current maternal conditions classifiable elsewhere, antepartum- Primary documented in this encounter
--- OUTSIDE RECORDS SUMMARY | 2025-03-31 00:05 | XMS_ITS | Clinical Summary ---
Author Organization [facility] Address [address] [facility] [place] [address] Care Team Providers Care Sound Installation Worker Name Role Phone Isaeblle Velázquez MD Unavailable [phone] Radha Espinoza PA-C Primary Care Provider [phone] Source Comments [facility],non-owned Affiliates and Associated Physician Practices is amultiple site organization consisting of ambulatory clinics and hospital sitesin [place], [place], [place] and [place]. This disclosure is being madepursuant to the Care Everywhere program and may not contain all information available regarding this patient. Last updated 18.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 Gender Identity Not on file Sexual Orientation [...] CONFIRM 12/26/2007 2:57 PM CDT CYTOLOGY PAP PIPE CUTTER MARÍA ELENA 12/02/1998 10:2 0 AM ASSEMBLER MOTOR VEHICLE from Last 3 Months or Most Recently Relevant to Health Maintenance Results * (ABNORMAL) COMPREHENSIVE METABOLIC PANEL (05/22/2022 9:41 AM CDT) BUN 6(L) 7 - 26 mg/dL 05/22/2022 11:01 AM [facility] Creatinine 0.75 0.56 - 0.96 mg/dL 05/22/2022 11:01 AM [facility] Sodium 140 136 - 145 mmol/L 05/22/2022 11:01 AM [facility] Potassium 3.9 3.5 - 4.5 mmol/L 05/22/2022 11:01 AM [facility] Chloride 105 98 - 107 mmol/L 05/22/2022 11:01 AM [facility] CO2 22 22 - 29 mmol/L 05/22/2022 11:01 AM [facility] Glucose 115 70 - 115 mg/dL 05/22/2022 11:01 AM [facility] Calcium 9.7 8.4 - 10.2 mg/dL 05/22/2022 11:01 AM [facility] Protein Total 7.3 6.0 - 8.3 g/dL 05/22/2022 11:01 AM [facility] Albumin 3.4 3.4 - 5.0 g/dL 05/22/2022 11:01 AM [facility] Bilirubin Total 0.4 0.2 - 1.2 mg/dL 05/22/2022 11:01 AM [facility] Alkaline Phosphatase 65 40 - 150 U/L 05/22/2022 11:01 AM [facility] ALT 14 5 - 55 U/L 05/22/2022 11:01 AM [facility] AST 15 5 - 34 U/L 05/22/2022 11:01 AM [facility] Anion Gap 17 8 - 18 05/22/2022 11:01 AM [facility] BUN/Creatinine Ratio 8 7 - 23 05/22/2022 11:01 AM [facility] Osmolality Calculated 289 270 - 300 mOsm/kg 05/22/2022 11:01 AM [facility] Albumin/Globulin Ratio 0.9(L) 1.1 - 2.3 05/22/2022 11:01 AM [facility] eGFR by CKD-EPI >90 >=90 mL/min/1.7 3 m2 05/22/2022 11:01 AM [facility] Blood BLOOD SPECIMEN / Unknown Lab Venipuncture / Unknown 05/22/2022 9:41 AM CDT 05/22/2022 10:24 AM CDT Benjamin James MD LAB - CHEMISTRY ORDERABLES F inal Result [address] [address], [facility] [phone] * HIV 1/0/2 ANTIBODIES W CONFIRM (PO REF LAB) (12/26/2007 2:57 PM CDT) HIV-1 Antibody EIA [facility] INSURANCE BILL HIV-1 Antibody O.D. Ratio <1.00 <1.00 [facility] INSURANCE BILL Comment:Index Value: Specime n reactivity relative to the negative cutoff. HIV-1/HIV-2 Non Reactive Non Reactive [facility] INSURANCE BILL 12/26/2007 2:57 PM CDT 12/26/2007 8:47 PM CDT Narrative Resulting Agency Comment [facility] [phone] Isabelle Velázquez MD LAB - MICROBIOLOGY ORDERABL ES Final Result Performing Organization Address [facility] de Phone Number [facility] INSURANCE BILL [address] [place] [address] * HEPATITIS C RIBA (12/26/2007 2:57 PM CDT) Hepatitis C Virus Antibody S/CO Ratio <0.1 0.0 - 0.9 s/co ratio [facility] INSURANCE BILL Comment: Negative Not infected with HCV, unless recent infection is suspected or other evidence exists to indicate HCV infection. 12/26/2007 2:57 PM CDT 12/26/2007 8:47 PM CDT Narrative Resulting Agency Comment [address] [phone] Isabelle Velázquez MD LAB - CHEMISTRY ORDERABLES Final Result Performing Organization Address [facility] de Phone Number [facility] INSURANCE BILL [address] [place] [address] * CYTOLOGY PAP PIPE CUTTER (12/02/1998 10:20 AM ASSEMBLER MOTOR VEHICLE) Result CASE NUMBER [id number] Comment: ORDERING [...] MISCELLANEOUS SAMPLES / Unknown 12/02/1998 10:20 AM ASSEMBLER MOTOR VEHICLE 12/02/1998 1:59 PM ASSEMBLER MOTOR VEHICLE Historical Provider LAB - PATHOLOGY/CYTOLOGY ORDERABLES Edited from Last 3 Months or Most Recently Relevant to Health Maintenance Insurance [facility] [place] [address] Advance Directives * Full Code (Latest Code Status on File) Date Activated Date Inactivated Comments 12/04/2021 6:25 AM 12/06/2021 5:44 PM Care Teams Sound Installation Worker Relationship Specialty Start Date End Date Isabelle Velázquez MD [address] [place] [address] [place] [address] PCP - OBGYN 05/13/08 Radha Espinoza PA-C [address] [place] [address] PCP - General Physician Tennis Centre Manager 05/22/22
--- OUTSIDE RECORDS SUMMARY | 2025-03-31 00:05 | XMS_ITS | Encounter Summary ---
Author Organization [facility] Address [address] [place] [address] Care Team Providers Care Sand Technician Name Role Phone Unavailable Primary Care Provider Mckenna wilcox Encounter Details Date Type Department Care Team (Latest Contact Info) Description 03/04/2004 Outpatient Historical [facility] Dina Hoda Grace, DO [address] [place] [address] BONE DISORDER-ANTEPARTUM (Primary Dx) Social History Tobacco Use Types Packs/Day Years Used Date Smoking Tobacco: Never Assessed Comments Unknown Sex and Gender Information Value Date Recorded Sex Assigned at Female 07/15/2024 12:25 PM CDT Legal 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
--- OUTSIDE RECORDS SUMMARY | 2025-03-31 00:05 | XMS_ITS ---
Author Organization [facility] Address [address] [place] [address] Care Team Providers Care Power Lineman Name Role Phone Abdulkadir WALTER, Jude Primary Care Provider Eric Barnett Unavailable [phone] REASON FOR VISIT Positive cologuard 5ft2 200 Encounters Encounter Location Date Provider Diagnosis [facility] [address] [place] [address] 07/01/2024 Eric Perdue Plan Of Treatment No Information Progress Notes * Saira ARTEAAG EDOB:1975 (50 yo F)Acc No.[id number]:07/01/2024 Patient: Saira TRIPLETT Provider: Josefina Perdue MD :1975 A ge:49 Y S ex:Female Date:07/01/2024 Address:[address] [place], [place] [id number] Pcp:Jude Panchal MD Subjective: * Chief Complaints: * 1 . Positive cologuard 5ft2 200. * Medical History: Objective: * Vitals: Assessment: Plan: * Treatment: * Images: * Electronic signature of Mine Perdue MD on 03/31/2025 at 12:05 AM CDT Sign off status: Pending * Provider: Josefina Perdue MD Date: 1 Generated for Printi ng/Faxing/eTransmitting on: 0 03/31/2025 12:05 AM CDT
--- OUTSIDE RECORDS SUMMARY | 2025-03-31 00:06 | XMS_ITS | Encounter Summary ---
Author Organization [facility] Address 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
--- OUTSIDE RECORDS SUMMARY | 2025-03-31 00:06 | XMS_ITS | Encounter Summary ---
Author Organization [facility] Address [address] [place] [address] Care Team Providers Care Precision Lathe Operator Name Role Phone Unavailable Primary Care Provider Mckenna e Encounter Details Date Type Department Care Team (Latest Contact Info) Description 09/15/2001 Outpatient Historical HIS PATIENT IN A BED Luz Nunez MD [address] [place] [address] OBSERVATION-ACCIDENT NEC (Primary Dx) Social History Tobacco Use Types Packs/Day Years Used Date Smoking Tobacco: Never Assessed Comments Unknown Sex and Gender Information Value Date Recorded Sex Assigned at Female 07/15/2024 12:25 PM CDT Legal Sex Female 3:58 AM POTTERY DECORATOR Gender Identity Female 07/15/2024 12:25 PM CDT Sexual Orientation Straight 07/15/2024 12 :25 PM CDT documented as of this encounter Plan of Treatment Not on file documented as of this encounter Visit Diagnoses Diagnosis Observation following other accident- Primary documented in this encounter
--- OUTSIDE RECORDS SUMMARY | 2025-03-31 00:06 | XMS_ITS | Encounter Summary ---
Author Organization [facility] Address 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
--- OUTSIDE RECORDS SUMMARY | 2025-03-31 00:06 | XMS_ITS | Encounter Summary ---
Author Organization [facility] Address [address] [place] [address] Care Team Providers Care Outdoor Recreation Specialist Name Role Phone Unavailable Primary Care [...] PM CDT Legal Sex Female 3:58 AM PREVENTION COORDINATOR Gender Identity Female 07/15/2024 12:25 PM CDT Sexual Orientation Straight 07/15/2024 12 :25 PM CDT documented as of this encounter Plan of Treatment Not on file documented as of this encounter Visit Diagnoses Diagnosis Decreased movements, affecting management of mother, antepartum- Primary documented in this encounter
--- OUTSIDE RECORDS SUMMARY | 2025-03-31 00:06 | XMS_ITS | Encounter Summary ---
Author Organization [facility] Address 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
--- OUTSIDE RECORDS SUMMARY | 2025-03-31 00:06 | XMS_ITS | Encounter Summary ---
Author Organization [facility] Address [address] [place] [address] Care Team Providers Care Application Security Engineer Name Role Phone Unavailable Primary Care Provider Mckenna e Encounter Details Date Type Department Care Team (Late st Contact Info) Description 08/20/2001 Outpatient Historical [facility] [address] [place] [phone] Alf Blanco Social History Tobacco Use Types Packs/Day Years Used Date Smoking Tobacco: Never Assessed Comments Unknown Sex and Gender Information Value Date Recorded Sex Assigned at Female 07/15/2024 12:25 PM CDT Legal Sex Female 3:58 AM CIVIL PREPAREDNESS 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
--- OUTSIDE RECORDS SUMMARY | 2025-03-31 00:06 | XMS_ITS | Encounter Summary ---
Author Organization [facility] Address [address] [place] [address] Care Team Providers Care Licensed Chemical Spray Technician Name Role Phone Unavailable Primary Care Provider Mckenna e Encounter Details Date Type Department Care Team (Latest Contact Info) Description 10/02/2001 Outpatient Historical [facility] Luz Nunez MD [address] [place] [address] OTHER CURR COND-ANTEPARTUM (Primary Dx) Social History Tobacco Use Types Packs/Day Years Used Date Smoking Tobacco: Never Assessed Comments Unknown Sex and Gender Information Value Date Recorded Sex Assigned at Female 07/15/2024 12:25 PM CDT Legal Sex Female 3:58 AM NURSING ASSISTANTS TEACHER Gender Identity Female 07/15/2024 12:25 PM CDT Sexual Orientation Straight 07/15/2024 12 :25 PM CDT documented as of this encounter Plan of Treatment Not on file documented as of this encounter Visit Diagnoses Diagnosis Other current maternal conditions classifiable elsewhere, antepartum- Primary documented in this encounter
--- OUTSIDE RECORDS SUMMARY | 2025-03-31 00:06 | XMS_ITS | Encounter Summary ---
Author Organization [facility] Address [address] [place] [address] Care Team Providers Care Bell Spinner Name Role Phone Unavailable Primary Care Provider Mckenna e Encounter Details Date Type Department Care Team (Latest Contact Info) Description 09/01/2001 Outpatient Historical [facility] PATIENT IN A BED Alf Hua MD [address] [facility] [address] [place] [phone] PREG COMPL NEC-ANTEPART (Primary Dx) Social History Tobacco Use Types Packs/Day Years Used Date Smoking Tobacco: Never Assessed Comments Unknown Sex and Gender Information Value Date Recorded Sex Assigned at Female 07/15/2024 12:25 PM CDT Legal Sex Female 3:58 AM BUSINESS MACHINES TEACHER Gender Identity Female 07/15/2024 12:25 PM CDT Sexual Orientation Straight 07/15/2024 12 :25 PM CDT documented as of this encounter Plan of Treatment Not on file documented as of this encounter Visit Diagnoses Diagnosis Other specified complication, antepartum(646.83)- Primary Other specified complication, antepartum documented in this encounter
--- OUTSIDE RECORDS SUMMARY | 2025-03-31 00:06 | XMS_ITS | Encounter Summary ---
Author Organization [facility] Address [address] [place] [address] Care Team Providers Care Hand Tufter Name Role Phone Unavailable Primary Care Provider Mckenna e Encounter Details Date Type Department Care Team (Late st Contact Info) Description 08/29/2001 Outpatient Historical [facility] [address] [place] [phone] Alf Blanco Social History Tobacco Use Types Packs/Day Years Used Date Smoking Tobacco: Never Assessed Comments Unknown Sex and Gender Information Value Date Recorded Sex Assigned at Female 07/15/2024 12:25 PM CDT Legal Sex Female 3:58 AM FACILITY 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
--- OUTSIDE RECORDS SUMMARY | 2025-03-31 00:06 | XMS_ITS | Encounter Summary ---
Author Organization [facility] Address [address] [place] [address] Care Team Providers Care Russian Rubber Name Role Phone Isabelle Velázquez MD Unavailable Radha Espinoza PA-C Primary Care Provider [phone] Encounter Details Date Type Department Care Team (Late st Contact Info) Description 12/05/2021 Ophth Exam [facility] [address] [place] [phone] Kvng Hagen MD [address] [place] [address] [place] [address] Social History Tobacco Use Types Packs/Day Years [...] on file 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
--- OUTSIDE RECORDS SUMMARY | 2025-03-31 00:06 | XMS_ITS | Encounter Summary ---
Author Organization [facility] Address [address] [place] [address] Care Team Providers Care Supervisor Industrial Garment Name Role Phone Unavailable Primary Care Provider Mckenna e Encounter Details Date Type Department Care Team (Late st Contact Info) Description 10/08/2001 Outpatient Historical [facility] [address] [place] [address] Melvin Valdovinos Social History Tobacco Use Types Packs/Day Years Used Date Smoking Tobacco: Never Assessed Comments Unknown Sex and Gender Information Value Date Recorded Sex Assigned at Female 07/15/2024 12:25 PM CDT Legal Sex Female 3:58 AM APPLIED BEHAVIOR SCIENCE SPECIALIST Gender Identity Female 07/15/2024 12:25 PM CDT Sexual Orientation Straight 07/15/2024 12 :25 PM CDT documented as of this encounter Plan of Treatment Not on file documented as of this encounter Visit Diagnoses Not on filedocumented in this encounter
--- OUTSIDE RECORDS SUMMARY | 2025-03-31 00:06 | XMS_ITS | Encounter Summary ---
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
--- OUTSIDE RECORDS SUMMARY | 2025-03-31 00:06 | XMS_ITS | Encounter Summary ---
Author Organization [facility] Address [address] [place] [address] Care Team Providers Care Or Manager Name Role Phone Unavailable Primary Care Provider Mckenna e Encounter Details Date Type Department Care Team (Latest Contact Info) Description 08/26/2001 Outpatient Historical HIS PATIENT IN A BED Alf Hua MD [address] [facility] [address] [place] [address] DECREASED MOVMT-ANTEPARTUM (Primary Dx) Social History Tobacco Use Types Packs/Day Years Used Date Smoking Tobacco: Never Assessed Comments Unknown Sex and Gender Information Value Date Recorded Sex Assigned at Female 07/15/2024 12:25 PM CDT Legal Sex Female 3:58 AM FIRE ASSISTANT Gender Identity Female 07/15/2024 12:25 PM CDT Sexual Orientation Straight 07/15/2024 12 :25 PM CDT documented as of this encounter Plan of Treatment Not on file documented as of this encounter Visit Diagnoses Diagnosis Decreased movements, affecting management of mother, antepartum- Primary documented in this encounter
--- OUTSIDE RECORDS SUMMARY | 2025-03-31 00:06 | XMS_ITS | Encounter Summary ---
Author Organization [facility] Address [address] [place] [address] Care Team Providers Care Rosin Barrel Filler Name Role Phone Unavailable Primary Care Provider [...] PM CDT Legal Sex Female 3:58 AM EDUCATION PROGRAM SPECIALIST Gender Identity Female 07/15/2024 12:25 PM CDT Sexual Orientation Straight 07/15/2024 12 :25 PM CDT documented as of this encounter Plan of Treatment Not on file documented as of this encounter Visit Diagnoses Diagnosis Supervision of other normal - Primary documented in this encounter
--- OUTSIDE RECORDS SUMMARY | 2025-03-31 00:06 | XMS_ITS | Encounter Summary ---
Author Organization [facility] Address [address] [place] [address] Care Team Providers Care Photoradio Operator Name Role Phone Unavailable Primary Care Provider Mckenna e Encounter Details Date Type Department Care Team (Late st Contact Info) Description 10/08/2001 Outpatient Historical [facility] [address] [place] [address] Melvin Valdovinos Social History Tobacco Use Types Packs/Day Years Used Date Smoking Tobacco: Never Assessed Comments Unknown Sex and Gender Information Value Date Recorded Sex Assigned at Female 07/15/2024 12:25 PM CDT Legal Sex Female 3:58 AM PLANNING LEAD Gender Identity Female 07/15/2024 12:25 PM CDT Sexual Orientation Straight 07/15/2024 12 :25 PM CDT documented as of this encounter Plan of Treatment Not on file documented as of this encounter Visit Diagnoses Not on filedocumented in this encounter
--- OUTSIDE RECORDS SUMMARY | 2025-03-31 00:06 | XMS_ITS | Encounter Summary ---
Author Organization [facility] Address [address] [place] [address] Care Team Providers Care Linux Server Administrator Name Role Phone Unavailable Primary Care Provider Mckenna e Encounter Details Date Type Department Care Team (Late st Contact Info) Description 08/01/2001 Outpatient Historical [facility] Otis Huddleston MD [address] [facility] [address] [facility] [address] [place] [address] ABN GLUCOSE TOLERAN TEST (Primary Dx) Social History Tobacco Use Types Packs/Day Years Used Date Smoking Tobacco: Never Assessed Comments Unknown Sex and Gender Information Value Date Recorded Sex Assigned at Female 07/15/2024 12:25 PM CDT Legal Sex Female 3:58 AM WATCHGUARD Gender Identity Female 07/15/2024 12:25 PM CDT Sexual Orientation Straight 07/15/2024 12 :25 PM CDT documented as of this encounter Plan of Treatment Not on file documented as of this encounter Visit Diagnoses Diagnosis Abnormal glucose- Primary documented in this encounter
--- OUTSIDE RECORDS SUMMARY | 2025-03-31 00:06 | XMS_ITS | Patient Health Record ---
Author Organization [facility] Address [address] [place] [address] [place] [address] Care Team Providers Care Purchasing Officer Name Role Phone Abdulkadir WALTER, [facility] Primary Care Provider Birda Eric Lora Unavailable [phone] Reason For Referral No Information Medications Medication SIG (Take, Route, Frequency, Duration) Notes Start Date End Date Status Na Sulfate-K Sulfate-Mg Sulf 17.5-3.13-1.6 GM/177ML ML Orally Twice a day,Follow Physician Instructions. for 1 days 06/26/2024 Active Encounters Encounter Location Date Provider Diagnosis [facility] [address] [place] [address] 06/26/2024 Eric Perdue [facility] [address] [place] [address] 06/26/2024 Eric Perdue [facility], [address] [place] [address] 06/27/2024 Eric Perdue Plan Of Treatment No Information Insurance Providers Payer Name Payer Address Payer Phone Subscriber Number Group Number Insured Name Patient Relationship to Insured Coverage Start Date Coverage End Date [facility] [address] [place] [address] [id number] Saira Bashir Self - patient is the insured
--- OUTSIDE RECORDS SUMMARY | 2025-03-31 00:06 | XMS_ITS | Encounter Summary ---
Author Organization [facility] Address [address] [place] [address] Care Team Providers Care Sealer Aircraft Name Role Phone Unavailable Primary Care Provider [...] PM CDT Legal Sex Female 3:58 AM AUDIO/VISUAL OPERATOR Gender Identity Female 07/15/2024 12:25 PM CDT Sexual Orientation Straight 07/15/2024 12 :25 PM CDT documented as of this encounter Plan of Treatment Not on file documented as of this encounter Visit Diagnoses Diagnosis Poor growth, affecting management of mother, antepartum condition or complication- Primary documented in this encounter
--- OUTSIDE RECORDS SUMMARY | 2025-03-31 00:06 | XMS_ITS | Encounter Summary ---
Author Organization [facility] Address 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
--- OUTSIDE RECORDS SUMMARY | 2025-03-31 00:06 | XMS_ITS | Encounter Summary ---
Author Organization [facility] Address [address] [place] [address] Care Team Providers Care Turbine Engine Assembler Name Role Phone Unavailable Primary Care [...] PM CDT Legal Sex Female 3:58 AM COLLECTION COORDINATOR Gender Identity Female 07/15/2024 12:25 PM CDT Sexual Orientation Straight 07/15/2024 12 :25 PM CDT documented as of this encounter Plan of Treatment Not on file documented as of this encounter Visit Diagnoses Diagnosis Other specified complication, antepartum(646.83)- Primary Other specified complication, antepartum documented in this encounter
--- OUTSIDE RECORDS SUMMARY | 2025-03-31 00:06 | XMS_ITS | Encounter Summary ---
Author Organization [facility] Address 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
--- OUTSIDE RECORDS SUMMARY | 2025-03-31 00:06 | XMS_ITS | Encounter Summary ---
Author Organization [facility] Address 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
--- OUTSIDE RECORDS SUMMARY | 2025-03-31 00:06 | XMS_ITS | Encounter Summary ---
Author Organization [facility] Address [address] [place] [address] Care Team Providers Care Biochemical Development Engineer Name Role Phone Unavailable Primary Care [...] PM CDT Legal Sex Female 3:58 AM ENVIRONMENTAL TEST TECHNICIAN Gender Identity Female 07/15/2024 12:25 PM CDT Sexual Orientation Straight 07/15/2024 12 :25 PM CDT documented as of this encounter Plan of Treatment Not on file documented as of this encounter Visit Diagnoses Diagnosis Poor growth, affecting management of mother, antepartum condition or complication- Primary documented in this encounter
--- OUTSIDE RECORDS SUMMARY | 2025-03-31 00:06 | XMS_ITS | Encounter Summary ---
Author Organization [facility] Address [address] [place] [address] Care Team Providers Care Natural Science Curator Name Role Phone Unavailable Primary Care Provider Mckenna e Encounter Details Date Type Department Care Team (Late st Contact Info) Description 08/29/2001 Outpatient Historical [facility] [address] [place] [address] Alf Blanco Social History Tobacco Use Types Packs/Day Years Used Date Smoking Tobacco: Never Assessed Comments Unknown Sex and Gender Information Value Date Recorded Sex Assigned at Female 07/15/2024 12:25 PM CDT Legal Sex Female 3:58 AM SENIOR APPLICATIONS 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
--- OUTSIDE RECORDS SUMMARY | 2025-03-31 00:06 | XMS_ITS | Encounter Summary ---
Author Organization Address 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
--- OUTSIDE RECORDS SUMMARY | 2025-03-31 00:06 | XMS_ITS | Encounter Summary ---
Author Organization [facility] Address 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
--- OUTSIDE RECORDS SUMMARY | 2025-03-31 00:06 | XMS_ITS | Encounter Summary ---
Author Organization [facility] Address [address] [place] [address] Care Team Providers Care Seating Captain Name Role Phone Unavailable Primary Care Provider [...] PM CDT Legal Sex Female 3:58 AM HISTORIOGRAPHER Gender Identity Female 07/15/2024 12:25 PM CDT Sexual Orientation Straight 07/15/2024 12 :25 PM CDT documented as of this encounter Plan of Treatment Not on file documented as of this encounter Visit Diagnoses Diagnosis Mild or unspecified pre-eclampsia, with delivery- Primary documented in this encounter
--- OUTSIDE RECORDS SUMMARY | 2025-03-31 00:06 | XMS_ITS | Encounter Summary ---
Author Organization [facility] Address [address] [place] [address] Care Team Providers Care Comb Setter Name Role Phone Unavailable Primary Care Provider [...] PM CDT Legal Sex Female 3:58 AM HEADLIGHT ASSEMBLER Gender Identity Female 07/15/2024 12:25 PM CDT Sexual Orientation Straight 07/15/2024 12 :25 PM CDT documented as of this encounter Plan of Treatment Not on file documented as of this encounter Visit Diagnoses Diagnosis Other specified complication, antepartum(646.83)- Primary Other specified complication, antepartum documented in this encounter
--- OUTSIDE RECORDS SUMMARY | 2025-03-31 00:06 | XMS_ITS | Encounter Summary ---
Author Organization [facility] Address [address] [place] [address] Care Team Providers Care Director Of Sales Name Role Phone Unavailable Primary Care Provider Mckenna e Encounter Details Date Type Department Care Team (Latest Contact Info) Description 09/08/2001 Outpatient Historical HIS PATIENT IN A BED Bonifacio, Donna Hua, Alf Arshad MD [address] [facility] [address] [place] [id number] PREG COMPL NEC-ANTEPART (Primary Dx) Social History Tobacco Use Types Packs/Day Years Used Date Smoking Tobacco: Never Assessed Comments Unknown Sex and Gender Information Value Date Recorded Sex Assigned at Female 07/15/2024 12:25 PM CDT 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
--- OUTSIDE RECORDS SUMMARY | 2025-03-31 00:06 | XMS_ITS | Encounter Summary ---
Author Organization [facility] Address [address] [place] [address] Care Team Providers Care Furnace Feeder Name Role Phone Unavailable Primary Care Provider [...] PM CDT Legal Sex Female 3:58 AM PROCESS SAFETY SPECIALIST Gender Identity Female 07/15/2024 12:25 PM CDT Sexual Orientation Straight 07/15/2024 12 :25 PM CDT documented as of this encounter Plan of Treatment Not on file documented as of this encounter Visit Diagnoses Diagnosis Supervision of other normal - Primary documented in this encounter
--- OUTSIDE RECORDS SUMMARY | 2025-03-31 00:06 | XMS_ITS | Encounter Summary ---
Author Organization [facility] Address [address] [place] [address] Care Team Providers Care Dipper Machine Operator Name Role Phone Unavailable Primary Care Provider Mckenna e Encounter Details Date Type Department Care Team (Late st Contact Info) Description 10/24/2001 Outpatient Historical HIS [facility] Otis Huddleston MD [address] [facility] [facility] [phone] ROUT POSTPART FOLLOW-UP (Primary Dx) Social History Tobacco Use Types Packs/Day Years Used Date Smoking Tobacco: Never Assessed Comments Unknown Sex and Gender Information Value Date Recorded Sex Assigned at Female 07/15/2024 12:25 PM CDT Legal Sex Female 3:58 AM PRODUCT DESIGN SPECIALIST Gender Identity Female 07/15/2024 12:25 PM CDT Sexual Orientation Straight 07/15/2024 12 :25 PM CDT documented as of this encounter Plan of Treatment Not on file documented as of this encounter Visit Diagnoses Diagnosis Routine follow-up- Primary documented in this encounter
--- OUTSIDE RECORDS SUMMARY | 2025-03-31 00:06 | XMS_ITS | Encounter Summary ---
Author Organization [facility] Address [address] [place] [address] Care Team Providers Care Sheriff'S Sergeant Name Role Phone Unavailable Primary Care Provider [...] PM CDT Legal Sex Female 3:58 AM GLUE REEL OPERATOR Gender Identity Female 07/15/2024 12:25 PM CDT Sexual Orientation Straight 07/15/2024 12 :25 PM CDT documented as of this encounter Plan of Treatment Not on file documented as of this encounter Visit Diagnoses Diagnosis Poor growth, affecting management of mother, antepartum condition or complication- Primary documented in this encounter
--- OUTSIDE RECORDS SUMMARY | 2025-03-31 00:06 | XMS_ITS | Encounter Summary ---
Author Organization [facility] Address [address] [place] [address] Care Team Providers Care Sterile Processing Technologist Name Role Phone Unavailable Primary Care [...] PM CDT Legal Sex Female 3:58 AM MANAGER SCHOOL Gender Identity Female 07/15/2024 12:25 PM CDT Sexual Orientation Straight 07/15/2024 12 :25 PM CDT documented as of this encounter Plan of Treatment Not on file documented as of this encounter Visit Diagnoses Diagnosis Decreased movements, affecting management of mother, antepartum- Primary documented in this encounter
--- OUTSIDE RECORDS SUMMARY | 2025-03-31 00:06 | XMS_ITS | Encounter Summary ---
Author Organization [facility] Address [address] [place] [address] Care Team Providers Care Intake Nurse Name Role Phone Unavailable Primary Care Provider Mckenna e Encounter Details Date Type Department Care Team (Late st Contact Info) Description 09/18/2001 Outpatient Historical [facility] [address] [place] [id number] Alf Blanco Social History Tobacco Use Types Packs/Day Years Used Date Smoking Tobacco: Never Assessed Comments Unknown Sex and Gender Information Value Date Recorded Sex Assigned at Female 07/15/2024 12:25 PM CDT Legal Sex Female 3:58 AM ARMED SECURITY 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
--- OUTSIDE RECORDS SUMMARY | 2025-03-31 00:06 | XMS_ITS | Encounter Summary ---
Author Organization [facility] Address [address] [place] [address] Care Team Providers Care Clean Up Helper Banquet Name Role Phone Unavailable Primary Care Provider [...] CDT Legal Sex Female 3:58 AM SENIOR SERVICE AIDE Gender Identity Female 07/15/2024 12:25 PM CDT Sexual Orientation Straight 07/15/2024 12 :25 PM CDT documented as of this encounter Plan of Treatment Not on file documented as of this encounter Visit Diagnoses Diagnosis Supervision of other normal - Primary documented in this encounter
--- OUTSIDE RECORDS SUMMARY | 2025-03-31 00:06 | XMS_ITS | Encounter Summary ---
Author Organization [facility] Address 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
--- NOTE | 2025-03-31 00:30 | ECG_ITS ---
Test Date: 2025-03-31 00:38:15 Measurements Intervals [place] Rate: 80 P: 21 MI: 124 QRS: 20 QRSD: 85 T: 24 QT: 371 QTc: 430 Interpretive Statements SINUS RHYTHM No previous ECG available for comparison Electronically Signed On 03-31-2025 17:56:47 CDT by Pasquale Franco
[2025-03-31 00:39] LABS: Alanine Aminotransferase 16 U/L (6-35); Albumin Level 4.1 g/dL (3.5-5.1); Alkaline Phosphatase 58 U/L (38-126); Anion Gap 7 mmol/L (4-12); Aspartate Amino Transferase 23 U/L (14-36); Bilirubin,Total 0.5 mg/dL (0.2-1.3); Blood Urea Nitrogen 8 mg/dL (7-17); Calcium 9.2 mg/dL (8.4-10.2); Carbon Dioxide 24 mmol/L (22-30); Chloride 107 mmol/L (98-107); Estimated CRCL calculation 92 ml/min; Estimated Glomerular Filt Rate > 60; Glucose 104 mg/dL (65-110); Potassium 3.8 mmol/L (3.4-5.0); Sodium 138 mmol/L (137-145); Total Protein 7.5 g/dL (6.3-8.2)
[2025-03-31 00:50] LABS: SPREG INTERNAL CONTROL Positive; Serum Qual hCG Negative
[2025-03-31 01:02] VITALS: BP 143/85; PULSE 90; RESP 19; O2SAT 99
[2025-03-31 01:15] LABS: Troponin I < 0.012 ng/mL (0.000-0.034)
[2025-03-31 01:20] LABS: Hematocrit 40.1 % (37.0-47.0); Hemoglobin 12.7 g/dL (12.0-15.0); Immature Granulocyte Percent A 0.6 % (0-0.5); Lymphocytes Absolute Auto 1.91 K/mm3 (0.9-3.2); Mean Corpuscular HGB Conc 31.7 g/dl (32-36); Mean Corpuscular Hemoglobin 29.5 pg (26-34); Mean Corpuscular Volume 93.3 fl (80-100); Nucleated Red Blood Cells Absolute Auto 0.000 K/mm3 (0.0-0.012); Nucleated Red Blood Cells Perc 0.0 % (0.0-0.2); Platelet Count Result 277 k/mm3 (150-375); Red Blood Count 4.30 M/mm3 (4.2-5.4); White Blood Count 8.3 K/mm3 (4.5-10.0)
[2025-03-31] MEDS: diazePAM INJ (*CRX) 10 MG/2 ML SYRINGE 5 MG IM (01:47)
[2025-03-31] MEDS: ACETAMINOPHEN 500 MG TABLET 1000 MG PO (01:47)
[2025-03-31 03:37] VITALS: BP 146/84; PULSE 83; RESP 17; O2SAT 100
[2025-03-31 03:38] VITALS: BP 146/84; PULSE 83; RESP 17; O2SAT 100
== END 2025-03-31 03:40 | disposition home or self-care (01) ==
PROVIDERS: Emergency Provider Physician Assistant; PCP Nurse Practitioner Family
DX: S16.1XXD Strain of muscle, fascia and tendon at neck level, subsequent encounter (principal); I10 Essential (primary) hypertension; V89.2XXD Person injured in unspecified motor-vehicle accident, traffic, subsequent encounter
CPT/HCPCS: 36415; 70450; 71260; 72125; 74177; 80053; 84484; 84703; 85025; 93005; 96372; 99284; A9270; J3360; Q9967